=== PATIENT | male | born 1930 | race Hispanic/Latino ===

== ENCOUNTER 2017-09-27 15:05 | Inpatient (IN) | payer MEDICARE, OTHER ==
[2017-09-27 15:39] VITALS: BMI 20.3
[2017-09-27] MEDS ORDERED: Sodium Chloride 0.9% 500 ML IV STA (15:40)
[2017-09-27] MEDS ORDERED: cefTRIAXone 2 GM IN NS 2 GM/100 ML BAG IVPB STA (15:45)
[2017-09-27] MEDS ORDERED: Azithromycin 500MG/NS 250ml 500 MG/250 ML BAG IVPB STA (15:45)
--- NOTE | 2017-09-27 15:51 | ED PDOC ---
Arrival/HPI - General Time Seen by Provider: 09/27/17 15:08 - History of Present Illness Narrative History of Present Illness (Text): 09/27/17 15:48 87 yo male, hx of htn, dementia, baseline awake alert, ambulatory oriented, presents from home with ams. as per family, noted pt to have ams yesterday with cough. pt noted to be febrile in er. pt is baseline ambulatory, verbal. no c/o of pain. no vomiting no diarrhea. Past Medical History - Infectious Disease Hx of Infectious Diseases: None - Tetanus Immunization Tetanus Immunization: Unknown - Cardiac Hx Cardiac Disorders: Yes Hx Congestive Heart Failure: No Hx Hypertension: Yes - Pulmonary Hx Chronic Obstructive Pulmonary Disease (COPD): No Hx Pneumonia: No - Neurological HX Cerebrovascular Accident: Yes - HEENT Hx HEENT Disorder: Yes ([place] DEE-NI') Hx Glaucoma: Yes - Renal Hx Renal Failure: No - Endocrine/Metabolic Hx Diabetes Mellitus Type 1: No Hx Diabetes Mellitus Type 2: No Hx Hypothyroidism: No - Hematological/Oncological Hx Cancer: Yes (squamous cell ca/ scalp) - Integumentary Hx Dermatological Disorder: No - Musculoskeletal/Rheumatological Hx Arthritis: No Hx Rheumatoid Arthritis: No - Gastrointestinal Hx Gastroesophageal Reflux: No - Genitourinary/Gynecological Hx Prostate Problems: Yes (PROSTATE CA) - Psychiatric Hx Emotional Abuse: No Hx Physical Abuse: No Hx Substance Use: No - Surgical History Hx Open Heart Surgery: Yes (bypass x 3) Other/Comment: endarctomy - Anesthesia Hx Anesthesia Reactions: No Hx Malignant Hyperthermia: No - Suicidal Assessment Feels Threatened In Home Enviroment: No Family/Social History - Physician Review Nursing Documentation Reviewed: Yes Family/Social History: Unknown Family HX Smoking Status: Unknown If Ever Smoked Hx Alcohol Use: No Hx Substance Use: No Hx Substance Use Treatment: No Allergies/Home Meds Allergies/Adverse Reactions: Allergies No Known Allergies Allergy (Verified 09/27/17 16:00) Home Medications: Home Meds Medication Instructions Recorded Confirmed Atorvastatin Calcium [Lipitor] 20 mg PO DAILY 06/27/14 09/27/17 Cyanocobalamin/Folic AC/Vit B6 1 tab PO DAILY 06/27/14 09/27/17 [Folbic Tablet] Aspirin [Ecotrin] 325 mg PO DAILY 02/18/16 09/27/17 Clopidogrel [Plavix] 75 mg PO DAILY 02/18/16 09/27/17 Travoprost [Travatan Z] 1 drop OU HS 02/18/16 09/27/17 Hydroxyurea [Hydrea] 500 mg PO BID 08/29/16 09/27/17 Rivastigmine 9.5 mg/24 hr [Exelon 1 patch TD DAILY 08/29/16 09/27/17 9.5 mg/24 hr Patch] Sertraline [Zoloft] 0 mg PO DAILY 09/27/17 09/27/17 Review of Systems - Review of Systems Constitutional: Normal Eyes: Normal ENT: Normal Respiratory: Cough Cardiovascular: Normal Gastrointestinal: Normal Genitourinary Male: Normal Musculoskeletal: Normal Skin: Normal Neurological: Normal Endocrine: Normal Hemo/Lymphatic: Normal Psychiatric: Normal Physical Exam Vital Signs Temp Pulse Resp BP Pulse Ox 09/27/17 21:00 100.1 F H 09/27/17 20:49 100.1 F H 61 18 159/96 H 97 09/27/17 20:26 99.8 F H 62 18 168/96 H 95 09/27/17 18:59 60 18 175/77 H 95 09/27/17 17:26 63 18 191/84 H 97 09/27/17 15:38 100.7 F H 66 18 190/80 H 95 Temperature: Afebrile Blood Pressure: Normal Pulse: Regular Respiratory Rate: Normal Appearance: Positive for: Non-Toxic, Comfortable Pain Distress: None Mental Status: Positive for: Alert and Oriented X 3 Finger Stick Blood Glucose: 108 - Systems Exam Head: Present: Atraumatic, Normocephalic Pupils: Present: PERRL Extroacular Muscles: Present: EOMI Conjunctiva: Present: Normal Mouth: Present: Moist Mucous Membranes Neck: Present: Normal Range of Motion Respiratory/Chest: Present: Good Air Exchange, Other (coarse bs bl). No: Respiratory Distress, Accessory Muscle Use Cardiovascular: Present: Regular Rate and Rhythm, Normal S1, S2. No: Murmurs Abdomen: Present: Normal Bowel Sounds. No: Tenderness, Distention, Peritoneal Signs, Rebound, Guarding Back: Present: Normal Inspection Upper Extremity: Present: Normal Inspection. No: Cyanosis, Edema Lower Extremity: Present: Normal Inspection. No: Edema Neurological: Present: GCS=15, CN II-XII Intact, Speech Normal, Motor Func Grossly Intact, Normal Sensory Function, Other (no focal deficit) Skin: Present: Warm, Dry, Normal Color. No: Rashes Psychiatric: Present: Alert, Oriented x 3, Normal Insight, Normal Concentration Medical Decision Making ED Course and Treatment: 09/27/17 19:13 suspect sepsis- labs imaging pendign head ct neg, pneumonia treated, also covered for possible aspiration. urine treated. accepted by dr adamson. pt also need ativan for sedation in head ct. ativan dosed. - Lab Interpretations Microbiology Results: Microbiology Results 09/27/17 14:05 Blood Blood Culture - Preliminary NO GROWTH AFTER 3 DAYS 09/27/17 15:35 Blood Blood Culture - Preliminary NO GROWTH AFTER 3 DAYS 09/27/17 16:10 Urine Urine Culture - Final Enterococcus Faecalis Lab Results: 09/27/17 15:35 09/27/17 15:35 Lab Results 09/27/17 16:25: Influenza Typ A,B (EIA) Negative for flu a/b 09/27/17 16:10: Urine Color Yellow, Urine Appearance Turbid, Urine pH 6.5, Ur Specific [place] 1.015, Urine Protein 30 H, Urine Glucose (UA) Negative, Urine Ketones Negative, Urine Blood Large H, Urine Nitrate Negative, Urine Bilirubin Negative, Urine Urobilinogen 1.0 H, Ur Leukocyte Esterase Moderate H, Urine RBC 5 - 10, Urine WBC Tntc, Urine Bacteria Trace 09/27/17 15:35: Phosphorus 3.5, Magnesium 2.0 09/27/17 15:35: Procalcitonin 0.06 L 09/27/17 15:35: Sodium 141, Chloride 100, Potassium 4.2, Carbon Dioxide 28, Anion Gap 17, BUN 19, Creatinine 1.0, Est GFR ( Amer) > 60, Est GFR (Non- Af Amer) > 60, Random Glucose 115 H, Calcium 10.7 H, Magnesium 2.0, Total Bilirubin 1.4 H, AST 46, ALT 35, Alkaline Phosphatase 150 H, Lactate Dehydrogenase 703 H, Total Creatine Kinase 453 H, CK-MB (CK-2) 1.6, CK-MB (CK-2 ) % Cancelled, Troponin I 0.06 D, Total Protein 8.0, Albumin 4.2, Globulin 3.8 , Albumin/Globulin Ratio 1.1 09/27/17 15:35: PT 13.9 H, INR 1.21 H, APTT 30.1 02/20/18 15:35: WBC 9.5, RBC 4.27, Hgb 13.9 L, Hct 41.6 L, MCV 97.4, MCH 32.6, MCHC 33.4, RDW 14.2, Plt Count 289, MPV 10.6, Gran % 67.8, Lymph % (Auto) 13.4 L , Jenkins % (Auto) 18.5 H, Eos % (Auto) 0.1 L, Baso % (Auto) 0.2, Gran # 6.43, Lymph # (Auto) 1.3, Jenkins # (Auto) 1.8 H, Eos # (Auto) 0.0, Baso # (Auto) 0.02 09/27/17 15:35: pO2 53, VBG pH 7.40, VBG pCO2 48.0, VBG HCO3 29.7 H, VBG Total CO2 31.2 H, VBG O2 Sat (Calc) 92.2 H, VBG Base Excess 4.0 H, VBG Potassium 4.4, Sodium 137.0, Chloride 101.0, Glucose 134 H, Lactate 1.9, FiO2 21.0, Venous Blood Potassium 4.4 09/27/17 15:33: POC Glucose (mg/dL) 108 - RAD Interpretation Radiology Orders: 09/27/17 15:40 CHEST PORTABLE [RAD] Stat 09/27/17 15:44 HEAD W/O CONTRAST [CT] Stat - Medication Orders Current Medication Orders: Acetaminophen (Tylenol 650 Mg Supp) 650 mg RC Q4H PRN PRN Reason: Fever >100.4 F Last Admin: 09/28/17 23:04 Dose: 650 mg LAURO Pain/Vitals Document 09/28/17 23:04 CDE (Rec: 09/28/17 23:04 CDE [id number]) Pain Reassessment Is This A Pain ReAssessment? No Presence of Pain Presence of Pain No Vitals Temperature (97.6 F-99.6 F) 101.4 F Temperature Source Rectal Re-Assess: LAURO Pain/Vitals Document 09/29/17 00:04 CDE (Rec: 09/29/17 05:14 CDE [id number]) Vitals Temperature (97.6 F-99.6 F) 99.2 F Temperature Source Rectal Acetylcysteine (Acetylcysteine 20%) 4 ml IH [id number] [facility] Last Admin: 10/01/17 05:01 Dose: Albuterol/Ipratropium (Duoneb 3 Mg/0.5 Mg (3 Ml) Ud) 3 ml IH [id number] [facility] Last Admin: 10/01/17 05:04 Dose: Amlodipine Besylate (Norvasc) 5 mg PO DAILY [facility] Last Admin: 09/30/17 16:47 Dose: 5 mg MAR Pulse and Blood Pressure Document 09/30/17 16:47 [facility] (Rec: 09/30/17 16:49 [facility] [id number]) Pulse Pulse Rate (60-90) 73 Blood Pressure Blood Pressure (100/60-150/90) 182/63 Aspirin (Ecotrin) 325 mg PO DAILY [facility] Last Admin: 09/30/17 11:07 Dose: 325 mg Atorvastatin Calcium (Lipitor) 20 mg PO DAILY [facility] Last Admin: 09/30/17 11:07 Dose: 20 mg Clopidogrel Bisulfate (Plavix) 75 mg PO DAILY [facility] Last Admin: 09/30/17 11:07 Dose: 75 mg Heparin Sodium (Porcine) (Heparin) 5,000 units SC Q8 [facility] PRN Reason: Protocol Last Admin: 10/01/17 05:25 Dose: 5,000 units Subcutaneous Administrations Document 10/01/17 05:25 [facility] (Rec: 10/01/17 05:25 [id number]) Charges for Administration # of Subcutaneous Administrations 1 Hydroxyurea (Hydrea) 500 mg PO BID [facility] Last Admin: 09/30/17 19:20 Dose: 500 mg Azithromycin (Zithromax 500mg In Ns) 500 mg in 250 mls @ 167 mls/hr IVPB DAILY [facility] PRN Reason: Protocol Last Admin: 09/30/17 11:27 Dose: 167 mls/hr eMAR Start Stop Document 09/30/17 11:27 [facility] (Rec: 09/30/17 11:27 [facility] [id number]) Intravenous Solution Start Date 09/30/17 Start Time 10:00 End Date 09/30/17 End time 11:00 Total Infusion Time 60 Meropenem/Sodium Chloride (Meropenem 1g/Ns 100ml Ivpb) 1 gm in 100 mls @ 100 mls/hr IVPB Q8 [facility] PRN Reason: Protocol Stop: 10/05/17 06:31 Last Admin: 10/01/17 05:25 Dose: 100 mls/hr eMAR Start Stop Document 10/01/17 05:25 [facility] (Rec: 10/01/17 05:25 [id number]) Intravenous Solution Start Date 10/01/17 Start Time 05:25 End Date 10/01/17 End time 06:25 Total Infusion Time 60 Vancomycin HCl (Vancomycin 1gm) 1 gm in 250 mls @ 167 mls/hr IVPB Q12H LEONARD PRN Reason: Protocol Last Admin: 10/01/17 06:41 Dose: 167 mls/hr eMAR Start Stop Document 10/01/17 06:41 [facility] (Rec: 10/01/17 06:42 [id number]) Intravenous Solution Start Date 10/01/17 Start Time 06:41 End Date 10/01/17 End time 08:11 Total Infusion Time 90 Potassium Chloride 10 meq/ (Dextrose/Sodium Chloride) 1,005 mls @ 100 mls/hr IV .Q10H3M LEONARD Last Admin: 09/30/17 21:39 Dose: 100 mls/hr eMAR Start Stop Document 09/30/17 21:39 [facility] (Rec: 09/30/17 21:39 [id number]) Intravenous Solution Start Date 09/30/17 Start Time 21:39 Latanoprost (Xalatan Opht) 0 ml OU HS LEONARD Last Admin: 09/30/17 21:37 Dose: 2.5 ml Lorazepam (Ativan) 0.5 mg IVP Q8H PRN; Protocol PRN Reason: Anxiety Last Admin: 09/29/17 21:46 Dose: 0.5 mg IVP Administration Document 09/29/17 21:46 [facility] (Rec: 09/29/17 21:46 [id number]) Charges for Administration # of IVP Administrations 1 Re-Assess: Reassess Psych Meds Document 09/29/17 22:16 [facility] (Rec: 09/29/17 23:45 [facility] [id number]) Reassess Psych Med Effective Metoprolol Succinate (Toprol Xl) 50 mg PO DAILY LEONARD Last Admin: 09/30/17 11:03 Dose: 50 mg MAR Pulse and Blood Pressure Document 09/30/17 11:03 JOYCELYN (Rec: 09/30/17 11:06 [facility] [id number]) Pulse Pulse Rate (60-90) 82 Blood Pressure Blood Pressure (100/60-150/90) 192/89 Oseltamivir Phosphate (Tamiflu Cap) 75 mg PO BID LEONARD PRN Reason: Protocol Stop: 10/03/17 06:22 Last Admin: 09/30/17 18:35 Dose: 75 mg Pantoprazole Sodium (Protonix Ec Tab) 40 mg PO ACB LEONARD Last Admin: 09/30/17 08:41 Dose: 40 mg Quetiapine Fumarate (Seroquel) 12.5 mg PO HS LEONARD PRN Reason: Protocol Last Admin: 09/30/17 21:36 Dose: 12.5 mg Behavioural Document 09/30/17 21:36 [facility] (Rec: 09/30/17 21:37 [id number]) Maintenance Maintenance Dose Yes Re-Assess: Reassess Psych Meds Document 09/30/17 22:36 [facility] (Rec: 09/30/17 22:40 [id number]) Reassess Psych Med Effective Rivastigmine (Exelon 9.5 Mg/24 Hr Patch) 1 patch TD DAILY [facility] Last Admin: 09/30/17 11:07 Dose: 1 patch MAR Transdermal Patch Site Document 09/30/17 11:07 [facility] (Rec: 09/30/17 11:07 [facility] [id number]) Transdermal Patch Site Transdermal Patch Site Right Shoulder Discontinued Medications Acetaminophen (Tylenol 325mg Tab) 975 mg PO STAT STA Stop: 09/27/17 15:42 Last Admin: 09/27/17 16:19 Dose: Acetaminophen (Tylenol 650 Mg Supp) 650 mg RC STAT STA Stop: 09/27/17 17:17 Last Admin: 09/27/17 17:26 Dose: 650 mg MAR Pain/Vitals Document 09/27/17 17:26 SF (Rec: 09/27/17 17:26 SF [id number]) Pain Reassessment Is This A Pain ReAssessment? Yes Sleep Is patient sleeping during reassessment? No Acetylcysteine (Acetylcysteine 20%) 4 ml IH ONCE ONE Stop: 09/28/17 22:05 Acetylcysteine (Acetylcysteine 20%) 4 ml IH ONCE ONE Stop: 09/27/17 22:05 Last Admin: 09/27/17 22:46 Dose: 4 ml Albuterol/Ipratropium (Duoneb 3 Mg/0.5 Mg (3 Ml) Ud) 3 ml IH STAT STA Stop: 09/27/17 22:27 Last Admin: 09/27/17 22:46 Dose: 3 ml Hydralazine HCl (Apresoline) 10 mg IVP ONCE ONE Stop: 09/28/17 11:40 Last Admin: 09/28/17 11:43 Dose: 10 mg IVP Administration Document 09/28/17 11:43 CD (Rec: 09/28/17 11:44 [id number] Charges for Administration # of IVP Administrations 1 MAR Pulse and Blood Pressure Document 09/28/17 11:43 CD (Rec: 09/28/17 11:44 CD [place] [id number]) Pulse Pulse Rate (60-90) 75 Blood Pressure Blood Pressure (100/60-150/90) 207/82 Hydralazine HCl (Apresoline) 10 mg IVP STAT STA Stop: 09/30/17 23:26 Last Admin: 09/30/17 23:38 Dose: 10 mg IVP Administration Document 09/30/17 23:38 [facility] (Rec: 09/30/17 23:38 [id number]) Charges for Administration # of IVP Administrations 1 MAR Pulse and Blood Pressure Document 09/30/17 23:38 [facility] (Rec: 09/30/17 23:38 [id number]) Pulse Pulse Rate (60-90) 68 Blood Pressure Blood Pressure (100/60-150/90) 188/89 Sodium Chloride (Sodium Chloride 0.9%) 500 mls @ 999 mls/hr IV .Q31M STA Stop: 09/27/17 16:10 Last Admin: 09/27/17 16:16 Dose: 999 mls/hr eMAR Start Stop Document 09/27/17 16:16 SF (Rec: 09/27/17 16:17 SF [id number]) Intravenous Solution Start Date 09/27/17 Start Time 16:16 End Date 09/27/17 End time 16:46 Total Infusion Time 30 Ceftriaxone Sodium (Rocephin 2 Gm Ivpb) 2 gm in 100 mls @ 100 mls/hr IVPB STAT STA PRN Reason: Protocol Stop: 09/27/17 16:44 Last Admin: 09/27/17 16:16 Dose: 100 mls/hr eMAR Start Stop Document 09/27/17 16:16 SF (Rec: 09/27/17 16:16 SF [id number]) Intravenous Solution Start Date 09/27/17 Start Time 16:16 End Date 09/27/17 End time 17:16 Total Infusion Time 60 Azithromycin (Zithromax 500mg In Ns) 500 mg in 250 mls @ 167 mls/hr IVPB STAT STA PRN Reason: Protocol Stop: 09/27/17 17:14 Last Admin: 09/27/17 18:59 Dose: 167 mls/hr eMAR Start Stop Document 09/27/17 18:59 SF (Rec: 09/27/17 18:59 SF [id number]) Intravenous Solution Start Date 09/27/17 Start Time 18:59 End Date 09/27/17 End time 20:30 Total Infusion Time 91 Metronidazole (Flagyl) 500 mg in 100 mls @ 100 mls/hr IVPB STAT STA PRN Reason: Protocol Stop: 09/27/17 17:17 Last Admin: 09/27/17 17:27 Dose: 100 mls/hr eMAR Start Stop Document 09/27/17 17:27 SF (Rec: 09/27/17 17:27 SF [id number]) Intravenous Solution Start Date 09/27/17 Start Time 17:27 End Date 09/27/17 End time 18:27 Total Infusion Time 60 Dextrose/Sodium Chloride (Dextrose 5%/0.45% Ns 1000 Ml) 1,000 mls @ 100 mls/hr IV .Q10H [facility] Last Admin: 09/28/17 23:19 Dose: 100 mls/hr eMAR Start Stop Document 09/28/17 23:19 CDE (Rec: 09/28/17 23:20 CDE [id number]) Intravenous Solution Start Date 09/28/17 Start Time 23:20 Daptomycin 420 mg/ Sodium (Chloride) 100 mls @ 200 mls/hr IV ONCE ONE Stop: 09/29/17 09:14 Last Admin: 09/29/17 10:04 Dose: 200 mls/hr eMAR Start Stop Document 09/29/17 10:04 STACY (Rec: 09/29/17 10:04 [id number]) Intravenous Solution Start Date 09/29/17 Start Time 10:04 End Date 09/29/17 End time 11:04 Total Infusion Time 60 Lorazepam (Ativan) 1 mg IVP ONCE ONE PRN Reason: Protocol Stop: 09/27/17 18:30 Last Admin: 09/27/17 18:59 Dose: 1 mg IVP Administration Document 09/27/17 18:59 SF (Rec: 09/27/17 18:59 SF [id number]) Charges for Administration # of IVP Administrations 1 Oseltamivir Phosphate (Tamiflu Cap) 75 mg PO STAT STA PRN Reason: Protocol Stop: 09/27/17 17:39 Last Admin: 09/27/17 18:58 Dose: Pantoprazole Sodium (Protonix Inj) 40 mg IVP DAILY LEONARD Last Admin: 09/29/17 10:01 Dose: 40 mg IVP Administration Document 09/29/17 10:01 STACY (Rec: 09/29/17 10:01 [id number]) Charges for Administration # of IVP Administrations 1 Potassium Chloride (Klor-Con 10) 10 meq PO ONCE ONE Stop: 09/29/17 09:01 Last Admin: 09/29/17 10:03 Dose: 10 meq Disposition/Present on Arrival - Present on Arrival Any Indicators Present on Arrival: No History of DVT/PE: No History of Uncontrolled Diabetes: No Urinary Catheter: No History Surgical Site Infection Following: None - Disposition Have Diagnosis and Disposition been Completed?: Yes Diagnosis: Pneumonia, Altered mental status, Urinary tract infection Disposition: HOSPITALIZED Disposition Time: 19:16 Patient Problems: Current Active Problems Problem Status Onset Altered mental status Acute Pneumonia Acute Urinary tract infection Acute Condition: GUARDED
[2017-09-27 15:57] LABS: BASO # 0.02 K/mm3 (0.0-2.0); BASO % 0.2 % (0.0-3.0); EOS % 0.1 % (1.5-5.0); GRAN # 6.43 (1.4-6.5); GRAN % 67.8 % (50.0-68.0); HEMOGLOBIN 13.9 g/dL (14.0-18.0); LYMPH # 1.3 (1.2-3.4); LYMPH % 13.4 % (22.0-35.0); MEAN CELL VOLUME 97.4 fl (80.0-105.0); MEAN CORPUSCULAR HEMOGLOBIN 32.6 pg (25.0-35.0); MEAN CORPUSCULAR HGB CONC 33.4 g/dl (31.0-37.0); MEAN PLATELET VOLUME 10.6 fl (7.0-11.0); MONO # 1.8 (0.1-0.6); MONO % 18.5 % (1.0-6.0); RBC 4.27 10^6/uL (3.5-6.1); RED CELL DISTRIBUTION WIDTH 14.2 % (11.5-14.5); WHITE BLOOD COUNT 9.5 10^3/ul (4.5-11.0)
[2017-09-27 16:00] LABS: VENOUS BLOOD GAS PO2 53 mm/Hg (30-55)
[2017-09-27 16:16] LABS: ALB/GLOB RATIO 1.1 (1.1-1.8); ALBUMIN 4.2 g/dL (3.0-4.8); ALT/SGPT 35 U/L (7-56); AST/SGOT 46 U/L (17-59); BLOOD UREA NITROGEN 19 mg/dL (7-21); CALCIUM 10.7 mg/dL (8.4-10.5); GFR AFRICAN-AMERICAN > 60; GFR NON-AFRICAN AMERICAN > 60
[2017-09-27 16:17] LABS: INR 1.21 (0.93-1.08); PARTIAL THROMBOPLASTIN TIME 30.1 Seconds (25.1-36.5); PROTHROMBIN TIME 13.9 SECONDS (9.4-12.5)
[2017-09-27] MEDS ORDERED: metroNIDAZOLE IV 500 mg/100 ml 500 MG/100 ML BAG IVPB STA (16:18)
[2017-09-27 16:28] LABS: TROPONIN I 0.06 ng/mL
[2017-09-27 16:31] LABS: PH,URINE 6.5 (4.7-8.0); URINE BILIRUBIN NEGATIVE (NEGATIVE); URINE BLOOD LARGE (NEGATIVE); URINE GLUCOSE (UA) NEGATIVE (NEGATIVE); URINE LEUKOCYTE ESTERASE MODERATE Leu/uL (NEGATIVE); URINE NITRATE NEGATIVE (NEGATIVE); URINE PROTEIN 30 mg/dL (<30 mg/dL)
[2017-09-27 16:32] LABS: URINE APPEARANCE TURBID (CLEAR); URINE COLOR YELLOW (YELLOW)
[2017-09-27 16:46] LABS: URINE BACTERIA TRACE (NEG); URINE WBC TNTC /hpf (0-6)
--- NOTE | 2017-09-27 16:46 | RAD ---
HISTORY: fever COMPARISON: 08/29/2016 FINDINGS: LUNGS: There is a patchy infiltrate in the right upper lobe consistent with pneumonia PLEURA: No significant pleural effusion identified, no pneumothorax apparent. CARDIOVASCULAR: Normal. OSSEOUS STRUCTURES: No significant abnormalities. VISUALIZED UPPER ABDOMEN: Normal. OTHER FINDINGS: None. IMPRESSION: There is a patchy infiltrate in the right upper lobe consistent with pneumonia
[2017-09-27 16:59] LABS: CK-MB 1.6 ng/mL (0.0-3.6)
--- NOTE | 2017-09-27 19:06 | CT ---
[place] PROCEDURE: CT HEAD WITHOUT CONTRAST. HISTORY: ams COMPARISON: Noncontrast head CT performed 08/29/16 TECHNIQUE: Axial computed tomography images were obtained through the head/brain without intravenous contrast. Radiation dose: Total exam DLP = 1068.12 mGy-cm. This CT exam was performed using one or more of the following dose reduction techniques: Automated exposure control, adjustment of the mA and/or kV according to patient size, and/or use of iterative reconstruction technique. FINDINGS: HEMORRHAGE: No intracranial hemorrhage. BRAIN: Diffuse atrophy with prominence of the ventricles and sulci noted. No mass effect or edema. Scattered periventricular and subcortical white matter hypodensities, which are nonspecific, but often seen with chronic microvascular ischemic disease. Chronic left parietal lobe encephalomalacia. Scattered tiny probable bilateral lacunar infarcts. Please note that MRI with diffusion imaging is more sensitive in the detection of acute ischemic event. VENTRICLES: No hydrocephalus. CALVARIUM: Unremarkable. PARANASAL SINUSES: Marked mucosal thickening involving bilateral maxillary sinuses, mucosal thickening of the bilateral sphenoid sinuses, and opacification of the ethmoid air cells and left frontal sinus. MASTOID AIR CELLS: Unremarkable as visualized. No inflammatory changes. OTHER FINDINGS: Evaluation limited by patient motion. Extensive osseous demineralization. IMPRESSION: Evaluation limited by patient motion. Generalized atrophy. Moderate nonspecific white matter changes. Chronic left parietal lobe encephalomalacia. Scattered tiny probable bilateral lacunar infarcts. Marked mucosal thickening involving bilateral maxillary sinuses, mucosal thickening of the bilateral sphenoid sinuses, and opacification of the ethmoid air cells and left frontal sinus. Correlate clinically for sinusitis. Extensive osseous demineralization. Inadequate evaluation for fractures due to motion osseous demineralization.
--- NOTE | 2017-09-27 21:06 | CP.PCM.PN ---
<Jamey Amor - Last Filed: 09/29/17 15:44> Subjective - Date & Time of Evaluation Date of Evaluation: 09/29/17 Time of Evaluation: 06:15 - Subjective Subjective: Patient seen and examined at bedside. Patient has been afebrile since his last rectal temp the previous night. Patient is more responsive since being admitted. Is aware of his name, aware of the city he's from and month. Patient denies pain. Review of systems limited as patient is altered. Objective - Vital Signs/Intake and Output Vital Signs (last 24 hours): Temp Pulse Resp BP Pulse Ox 100.1 F H 61 18 159/96 H 97 09/27/17 20:49 09/27/17 20:49 09/27/17 20:49 09/27/17 20:49 09/27/17 20:49 - Medications Medications: Current Medications Acetaminophen (Tylenol 650 Mg Supp) 650 mg RC Q4H PRN PRN Reason: Fever >100.4 F Aspirin (Ecotrin) 325 mg PO DAILY [facility] Atorvastatin Calcium (Lipitor) 20 mg PO DAILY [facility] Clopidogrel Bisulfate (Plavix) 75 mg PO DAILY [facility] Heparin Sodium (Porcine) (Heparin) 5,000 units SC Q8 [facility] PRN Reason: Protocol Hydroxyurea (Hydrea) 500 mg PO BID [facility] Metoprolol Succinate (Toprol Xl) 50 mg PO DAILY [facility] Non-Formulary Medication (Travoprost [Travatan Z]) 1 drop OU HS [facility] Pantoprazole Sodium (Protonix Inj) 40 mg IVP DAILY [facility] Quetiapine Fumarate (Seroquel) 12.5 mg PO HS [facility] PRN Reason: Protocol Rivastigmine (Exelon 9.5 Mg/24 Hr Patch) 1 patch TD DAILY [facility] - Labs Labs: PT 13.9 SECONDS (9.4-12.5) H 09/27/17 15:35 INR 1.21 (0.93-1.08) H 09/27/17 15:35 APTT 30.1 Seconds (25.1-36.5) 09/27/17 15:35 - Constitutional Appears: Non-toxic, No Acute Distress - Head Exam Head Exam: ATRAUMATIC, NORMOCEPHALIC Additional comments: scars from previous skin cancer removals - Eye Exam Eye Exam: Normal appearance - ENT Exam ENT Exam: Mucous Membranes Moist, Normal Exam - Neck Exam Neck Exam: Full ROM, Normal Inspection - Respiratory Exam Respiratory Exam: Clear to Ausculation Bilateral, NORMAL BREATHING PATTERN. absent: Rhonchi, Wheezes - Cardiovascular Exam Cardiovascular Exam: REGULAR RHYTHM, +S1, +S2 - GI/Abdominal Exam GI & Abdominal Exam: Soft, Normal Bowel Sounds - Neurological Exam Neurological Exam: Alert, Awake, Oriented x3 - Psychiatric Exam Psychiatric exam: Normal Affect, Normal Mood - Skin Skin Exam: Intact, Normal Color, Warm Assessment and Plan - Assessment and Plan (Free Text) Assessment: 80 year old male with significant history of alzheimer's dementia presenting with altered mental status found to be septic with urinary tract infection, pneumonia, and sinusitis being sources of infection. Plan: Altered mental status secondary to sepsis due to urinary tract infection, Right upper lobe pneumonia, and sinusitis -Procal negative, CRP elevated >15 -IVF -Merrem, Azithromycin, Vancomycin, Daptomycin -Troponin series negative -Sputum cultures grew normal bulmaro -Blood cultures pending -Urine cultures grew eterococcus faecalis -Legionella, S. pneumoniae, Mycoplasma studies ordered -Infectious disease on board, started daptoymcin considering urine culture -Continue with seizure, aspiration, fall precautions History of CAD - continue ASA, Plavix, Lipitor, and Metoprolol Alzheimer's Dementia - Continue Exelon patch - Seroquel DVT prophylaxis: SCDs, Plavix GI prophylaxis: Protonix Dispo: physical therapy recommends subacute rehab. <Dot Bernstein - Last Filed: 09/29/17 16:06> Objective - Vital Signs/Intake and Output Vital Signs (last 24 hours): Temp Pulse Resp BP Pulse Ox 98.9 F 68 16 176/72 H 95 09/29/17 12:00 09/29/17 14:00 09/29/17 12:00 09/29/17 12:00 09/29/17 12:00 Intake and Output: 09/29/17 09/29/17 06:59 18:59 Intake Total 1200 240 Output Total 300 Balance 900 240 - Medications Medications: Current Medications Acetaminophen (Tylenol 650 Mg Supp) 650 mg RC Q4H PRN PRN Reason: Fever >100.4 F Last Admin: 09/28/17 23:04 Dose: 650 mg Acetylcysteine (Acetylcysteine 20%) 4 ml IH [id number] [facility] Last Admin: 09/29/17 11:21 Dose: 4 ml Albuterol/Ipratropium (Duoneb 3 Mg/0.5 Mg (3 Ml) Ud) 3 ml IH [id number] [facility] Last Admin: 09/29/17 11:22 Dose: 3 ml Aspirin (Ecotrin) 325 mg PO DAILY [facility] Last Admin: 09/29/17 10:04 Dose: 325 mg Atorvastatin Calcium (Lipitor) 20 mg PO DAILY [facility] Last Admin: 09/29/17 10:04 Dose: 20 mg Clopidogrel Bisulfate (Plavix) 75 mg PO DAILY [facility] Last Admin: 09/29/17 10:01 Dose: 75 mg Heparin Sodium (Porcine) (Heparin) 5,000 units SC Q8 [facility] PRN Reason: Protocol Last Admin: 09/29/17 14:04 Dose: 5,000 units Hydroxyurea (Hydrea) 500 mg PO BID [facility] Last Admin: 09/29/17 12:14 Dose: 500 mg Azithromycin (Zithromax 500mg In Ns) 500 mg in 250 mls @ 167 mls/hr IVPB DAILY [facility] PRN Reason: Protocol Last Admin: 09/29/17 10:04 Dose: 167 mls/hr Meropenem/Sodium Chloride (Meropenem 1g/Ns 100ml Ivpb) 1 gm in 100 mls @ 100 mls/hr IVPB Q8 [facility] PRN Reason: Protocol Stop: 10/05/17 06:31 Last Admin: 09/29/17 14:04 Dose: 100 mls/hr Vancomycin HCl (Vancomycin 1gm) 1 gm in 250 mls @ 167 mls/hr IVPB Q12H [facility] PRN Reason: Protocol Last Admin: 09/29/17 05:59 Dose: 167 mls/hr Potassium Chloride 10 meq/ (Dextrose/Sodium Chloride) 1,005 mls @ 100 mls/hr IV .Q10H3M [facility] Last Admin: 09/29/17 10:01 Dose: 100 mls/hr Latanoprost (Xalatan Opht) 0 ml OU HS [facility] Last Admin: 09/28/17 23:13 Dose: 2.5 ml Lorazepam (Ativan) 0.5 mg IVP Q8H PRN; Protocol PRN Reason: Anxiety Metoprolol Succinate (Toprol Xl) 50 mg PO DAILY [facility] Last Admin: 09/29/17 10:19 Dose: 50 mg Oseltamivir Phosphate (Tamiflu Cap) 75 mg PO BID [facility] PRN Reason: Protocol Stop: 10/03/17 06:22 Last Admin: 09/29/17 10:02 Dose: 75 mg Pantoprazole Sodium (Protonix Ec Tab) 40 mg PO ACB [facility] Quetiapine Fumarate (Seroquel) 12.5 mg PO HS [facility] PRN Reason: Protocol Last Admin: 09/28/17 23:03 Dose: 12.5 mg Rivastigmine (Exelon 9.5 Mg/24 Hr Patch) 1 patch TD DAILY [facility] Last Admin: 09/29/17 10:03 Dose: 1 patch - Labs Labs: 09/29/17 06:30 09/29/17 06:30 PT 13.9 SECONDS (9.4-12.5) H 09/27/17 15:35 INR 1.21 (0.93-1.08) H 09/27/17 15:35 APTT 30.6 Seconds (25.1-36.5) 09/28/17 03:15 Attending/Attestation - Attestation I have personally seen and examined this patient.: Yes I have fully participated in the care of the patient.: Yes I have reviewed all pertinent clinical information, including history, physical exam and plan: Yes Notes (Text): 09/29/17 16:05 attending note; Patient seen and examined with resident. Patient is a 80 year old male with significant history of alzheimer's dementia presenting with altered mental status found to be septic with urinary tract infection, pneumonia, and sinusitis being sources of infection. MAXIMUM TEMPERATURE of 102. Started on IV meropenem and Zithromax. ID evaluation requested. Rapid flu was negative. Patient is started on Tamiflu. Monitor fever trend. Fall/aspiration/seizure precautions. Upon discharge the patient will follow up with PMD Dr. Lorenzo.
[2017-09-27] MEDS: Latanoprost 2.5 ml Opht Soln OU SCH (21:48)
[2017-09-27] MEDS ORDERED: Non Formulary Medication (Travoprost [Travatan Z] 1 DROP) OU SCH (22:00)
[2017-09-27] MEDS ORDERED: Acetylcysteine 20% Inhal Soln (4ml) IH ONE (22:04)
[2017-09-27] MEDS ORDERED: Albuterol-Ipratrop 3 mg / 0.5 (3 ml) UD IH STA (22:26)
--- NOTE | 2017-09-28 02:29 | CARD ---
APPROVED REPORT EKG Measurement Heart [id number] <Conclusion> Normal sinus rhythm Nonspecific T wave abnormality Abnormal ECG
--- NOTE | 2017-09-28 03:16 | CP.PCM.HP ---
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 As per daughter's patient was completely fine yesterday aside from having a runny nose. Next morning when bringing him breakfast, patient was noted to be very confused, and not oriented to self, time or place. To note, patient presented similarly in the past due to urinary tract infection. Review of systems unobtainable as patient is mentally altered. PMD: Dr. 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 Patient is retired. Lives in furnished basement of daughter's house. Needs assistance for ADL's and IADL's. Uses cane for walking. Present on Admission - Present on Admission Any Indicators Present on Admission: No Review of Systems - Review of Systems Systems not reviewed;Unavailable: Altered Mental Status Past Patient History - Infectious Disease Hx of Infectious Diseases: None - Tetanus Immunizations Tetanus Immunization: Unknown - Past Medical History & Family History Past Medical History?: Yes - Past Social History Smoking Status: Unknown If Ever Smoked - CARDIAC Hx Cardiac Disorders: Yes (CABG, carotid endarectomy) Hx Hypercholesterolemia: Yes Hx Hypertension: Yes - PULMONARY Hx Chronic Obstructive Pulmonary Disease (COPD): No Hx Pneumonia: No - NEUROLOGICAL HX Cerebrovascular Accident: Yes Hx Dementia: Yes - HEENT Hx HEENT Problems: Yes Hx Glaucoma: Yes - RENAL Hx Chronic Kidney Disease: No - ENDOCRINE/METABOLIC Hx Endocrine Disorders: No - HEMATOLOGICAL/ONCOLOGICAL Hx Cancer: Yes (squamous cell ca/ scalp) - INTEGUMENTARY Hx Dermatological Problems: Yes Hx Squamous Cell: Yes (scalp) - MUSCULOSKELETAL/RHEUMATOLOGICAL Hx Musculoskeletal Disorders: Yes Hx Falls: Yes Hx Osteoporosis: Yes - GASTROINTESTINAL Hx Gastrointestinal Disorders: No - GENITOURINARY/GYNECOLOGICAL Hx Genitourinary Disorders: Yes Hx Prostate Problems: Yes (PROSTATE CA) Hx Urinary Tract Infection: Yes - PSYCHIATRIC Hx Psychophysiologic Disorder: Yes Hx Depression: Yes Hx Substance Use: No - SURGICAL HISTORY Hx Surgeries: Yes Hx Cardiac Catheterization: Yes Hx Coronary Stent: Yes Hx Open Heart Surgery: Yes Other/Comment: carotid endarctomy - ANESTHESIA Hx Anesthesia Reactions: No Hx Malignant Hyperthermia: No Meds Allergies/Adverse Reactions: Allergies Allergy/AdvReac Type Severity Reaction Status Date / Time No Known Allergies Allergy Verified 09/27/17 16:00 Physical Exam - Constitutional Appears: In Acute Distress - Head Exam Head Exam: ATRAUMATIC, NORMAL INSPECTION, NORMOCEPHALIC - Eye Exam Eye Exam: Normal appearance, PERRL - ENT Exam ENT Exam: Mucous Membranes Dry - Neck Exam Neck exam: Positive for: Normal Inspection - Respiratory Exam Respiratory Exam: Clear to Auscultation Bilateral, NORMAL BREATHING PATTERN. absent: Wheezes - Cardiovascular Exam Cardiovascular Exam: REGULAR RHYTHM, +S1, +S2 - GI/Abdominal Exam GI & Abdominal Exam: Normal Bowel Sounds, Soft - Extremities Exam Extremities exam: Positive for: normal inspection, pedal pulses present. Negative for: pedal edema, tenderness - Back Exam Back exam: NORMAL INSPECTION - Neurological Exam Neurological exam: Altered - Skin Skin Exam: Intact, Normal Color, Warm Additional comments: scar on chest wall from CABG Results - Vital Signs Recent Vital Signs: Last Vital Signs Temp 99.9 F H 09/28/17 00:01 Pulse 60 09/28/17 02:00 Resp 19 09/28/17 00:01 BP 170/69 H 09/28/17 00:01 Pulse Ox 95 09/28/17 00:01 - Labs Result Diagrams: 09/28/17 03:15 09/28/17 03:15 Labs: Laboratory Results - last 24 hr 09/27/17 22:31 Troponin I 0.07 Assessment & Plan - Assessment and Plan (Free Text) Assessment: 80 year old male with significant history of alzheimer's dementia presenting with altered mental status found to be septic with urinary tract infection, pneumonia, and sinusitis being sources of infection. Plan: Altered mental status secondary to sepsis due to urinary tract infection, Right upper lobe pneumonia, and sinusitis -Procal -IVF -Rocephin and Azithromycin -Troponin series ordered -Sputum, blood, and urine cultures -Legionella, S. pneumoniae, Mycoplasma studies ordered -Infectious disease consulted -Seizure, aspiration, fall precautions History of CAD - continue ASA, Plavix, Lipitor, and Metoprolol Alzheimer's Dementia - Continue Exelon patch - Seroquel DVT prophylaxis: SCDs, Plavix GI prophylaxis: Protonix
[2017-09-28 03:39] LABS: ALB/GLOB RATIO 1.1 (1.1-1.8); ALT/SGPT 32 U/L (7-56); AST/SGOT 54 U/L (17-59); BLOOD UREA NITROGEN 18 mg/dL (7-21); CALCIUM 10.2 mg/dL (8.4-10.5); GFR AFRICAN-AMERICAN > 60; GFR NON-AFRICAN AMERICAN > 60
[2017-09-28 03:43] LABS: BASO # 0.02 K/mm3 (0.0-2.0); BASO % 0.2 % (0.0-3.0); EOS % 0.3 % (1.5-5.0); GRAN # 5.76 (1.4-6.5); HEMOGLOBIN 13.3 g/dL (14.0-18.0); LYMPH % 21.2 % (22.0-35.0); MEAN CELL VOLUME 98.3 fl (80.0-105.0); MEAN CORPUSCULAR HEMOGLOBIN 32.4 pg (25.0-35.0); MEAN CORPUSCULAR HGB CONC 32.9 g/dl (31.0-37.0); MEAN PLATELET VOLUME 11.1 fl (7.0-11.0); MONO # 1.6 (0.1-0.6); MONO % 17.3 % (1.0-6.0); RBC 4.11 10^6/uL (3.5-6.1); RED CELL DISTRIBUTION WIDTH 14.5 % (11.5-14.5); WHITE BLOOD COUNT 9.5 10^3/ul (4.5-11.0)
[2017-09-28 03:50] LABS: TROPONIN I 0.06 ng/mL
[2017-09-28] MEDS: Dextrose 5%/0.45% NS 1,000 ML IV SCH ×3 (06:00→23:19)
[2017-09-28] MEDS: Meropenem 1g/NS 100mL IVPB 1 GM/100 ML PIGGYBACK IVPB SCH ×3 (06:38→23:02)
[2017-09-28] MEDS: Albuterol-Ipratrop 3 mg / 0.5 (3 ml) UD IH SCH ×6 (06:42→23:50)
[2017-09-28] MEDS: Acetylcysteine 20% Inhal Soln (4ml) IH SCH ×6 (06:42→23:50)
[2017-09-28] MEDS: Vancomycin 1gm in NS 250ml 1 GM/250 ML BAG IVPB SCH ×2 (09:20→17:46)
[2017-09-28] MEDS: Metoprolol Succinate 50 mg XL Tab PO SCH (09:53)
[2017-09-28] MEDS: Aspirin 325 mg EC Tablets PO SCH (09:56)
[2017-09-28] MEDS ORDERED: cefTRIAXone 1 gm 1 GM/100 ML BAG IVPB SCH (10:00)
[2017-09-28] MEDS: Azithromycin 500MG/NS 250ml 500 MG/250 ML BAG IVPB SCH (11:00)
--- NOTE | 2017-09-28 11:58 | CP.PCM.CON ---
History of Present Illness - History of Present Illness History of Present Illness: 87 year old male with PMH of dementia, Paget's disease, osteoporosis, CAD S/P PCI S/P CABG, prostate cancer, dyslipidemia, squamous cell of the scalp S/P removal, asbestosis was [place] in [place] [facility] [place] was found to be confused on the day of admission. The day prior to that he was having rhinorrhea. There was no note of fevers at home but was noted to have fever during this admission, no vomiting, no convulsions, no loss of consciousness, no falls, no diarrhea. Full ROS is unobtainable because of the patient's mental status. In the ED, the patient was noted to be lethargic, febrile. CXR done showed patchy infiltrate in the right upper lobe. Infectious Diseases consult is requested to further evaluate and manage. Review of Systems - Review of Systems All systems: reviewed and no additional remarkable complaints except Past Patient History - Infectious Disease Hx of Infectious Diseases: None - Tetanus Immunizations Tetanus Immunization: Unknown - Past Medical History & Family History Past Medical History?: Yes - Past Social History Smoking Status: Unknown If Ever Smoked - CARDIAC Hx Cardiac Disorders: Yes (CABG, carotid endarectomy) Hx Hypercholesterolemia: Yes Hx Hypertension: Yes - PULMONARY Hx Chronic Obstructive Pulmonary Disease (COPD): No Hx Pneumonia: No - NEUROLOGICAL HX Cerebrovascular Accident: Yes Hx Dementia: Yes - HEENT Hx HEENT Problems: Yes Hx Glaucoma: Yes - RENAL Hx Chronic Kidney Disease: No - ENDOCRINE/METABOLIC Hx Endocrine Disorders: No - HEMATOLOGICAL/ONCOLOGICAL Hx Cancer: Yes (squamous cell ca/ scalp) - INTEGUMENTARY Hx Dermatological Problems: Yes Hx Squamous Cell: Yes (scalp) - MUSCULOSKELETAL/RHEUMATOLOGICAL Hx Musculoskeletal Disorders: Yes Hx Falls: Yes Hx Osteoporosis: Yes - GASTROINTESTINAL Hx Gastrointestinal Disorders: No - GENITOURINARY/GYNECOLOGICAL Hx Genitourinary Disorders: Yes Hx Prostate Problems: Yes (PROSTATE CA) Hx Urinary Tract Infection: Yes - PSYCHIATRIC Hx Psychophysiologic Disorder: Yes Hx Depression: Yes Hx Substance Use: No - SURGICAL HISTORY Hx Surgeries: Yes Hx Cardiac Catheterization: Yes Hx Coronary Stent: Yes Hx Open Heart Surgery: Yes Other/Comment: carotid endarctomy - ANESTHESIA Hx Anesthesia Reactions: No Hx Malignant Hyperthermia: No Meds Allergies/Adverse Reactions: Allergies Allergy/AdvReac Type Severity Reaction Status Date / Time No Known Allergies Allergy Verified 09/27/17 16:00 - Medications Medications: Current Medications Acetaminophen (Tylenol 650 Mg Supp) 650 mg RC Q4H PRN PRN Reason: Fever >100.4 F Last Admin: 09/28/17 03:38 Dose: 650 mg Acetylcysteine (Acetylcysteine 20%) 4 ml IH [id number] [facility] Albuterol/Ipratropium (Duoneb 3 Mg/0.5 Mg (3 Ml) Ud) 3 ml IH [id number] [facility] Aspirin (Ecotrin) 325 mg PO DAILY [facility] Atorvastatin Calcium (Lipitor) 20 mg PO DAILY [facility] Clopidogrel Bisulfate (Plavix) 75 mg PO DAILY [facility] Heparin Sodium (Porcine) (Heparin) 5,000 units SC Q8 [facility] PRN Reason: Protocol Last Admin: 09/28/17 05:04 Dose: 5,000 units Hydroxyurea (Hydrea) 500 mg PO BID [facility] Azithromycin (Zithromax 500mg In Ns) 500 mg in 250 mls @ 167 mls/hr IVPB DAILY [facility] PRN Reason: Protocol Dextrose/Sodium Chloride (Dextrose 5%/0.45% Ns 1000 Ml) 1,000 mls @ 100 mls/hr IV .Q10H [facility] Last Admin: 09/28/17 06:00 Dose: 100 mls/hr Meropenem 1 gm/ Dextrose 100 mls @ 100 mls/hr IVPB Q8 [facility] PRN Reason: Protocol Stop: 10/05/17 06:31 Vancomycin HCl (Vancomycin 1gm) 1 gm in 250 mls @ 167 mls/hr IVPB Q12H [facility] PRN Reason: Protocol Latanoprost (Xalatan Opht) 0 ml OU HS [facility] Last Admin: 09/27/17 21:48 Dose: 2.5 ml Metoprolol Succinate (Toprol Xl) 50 mg PO DAILY [facility] Oseltamivir Phosphate (Tamiflu Cap) 75 mg PO BID [facility] PRN Reason: Protocol Stop: 10/03/17 06:22 Pantoprazole Sodium (Protonix Inj) 40 mg IVP DAILY [facility] Quetiapine Fumarate (Seroquel) 12.5 mg PO HS [facility] PRN Reason: Protocol Last Admin: 09/27/17 21:48 Dose: Not Given Rivastigmine (Exelon 9.5 Mg/24 Hr Patch) 1 patch TD DAILY [facility] Physical Exam - Constitutional Appears: Chronically Ill, Other (somewhat lethargic but arousable) - Head Exam Head Exam: NORMAL INSPECTION - Neck Exam Neck exam: Negative for: Meningismus - Respiratory Exam Respiratory Exam: Decreased Breath Sounds - Cardiovascular Exam Cardiovascular Exam: +S1, +S2 - GI/Abdominal Exam GI & Abdominal Exam: Soft. absent: Tenderness Results - Vital Signs Recent Vital Signs: Last Vital Signs Temp 102.1 F H 09/28/17 05:58 Pulse 71 09/28/17 06:00 Resp 22 09/28/17 05:58 BP 131/63 09/28/17 05:58 Pulse Ox 93 L 09/28/17 05:58 - Labs Result Diagrams: 09/28/17 03:15 09/28/17 03:15 Labs: Laboratory Results - last 24 hr 09/27/17 09/28/17 09/28/17 22:31 03:15 03:15 WBC RBC Hgb Hct MCV MCH MCHC RDW Plt Count MPV Gran % Lymph % (Auto) [place] % (Auto) Eos % (Auto) Baso % (Auto) Gran # Lymph # (Auto) [place] # (Auto) Eos # (Auto) Baso # (Auto) APTT 30.6 Sodium 145 Potassium 4.1 Chloride 104 Carbon Dioxide 29 Anion Gap 17 BUN 18 Creatinine 1.0 Est GFR ( Amer) > 60 Est GFR (Non-Af Amer) > 60 Random Glucose 127 H Calcium 10.2 Total Bilirubin 1.0 AST 54 ALT 32 Alkaline Phosphatase 121 Troponin I 0.07 0.06 Total Protein 7.6 Albumin 4.0 Globulin 3.7 Albumin/Globulin Ratio 1.1 09/28/17 03:15 WBC 9.5 RBC 4.11 Hgb 13.3 L Hct 40.4 L MCV 98.3 MCH 32.4 MCHC 32.9 RDW 14.5 Plt Count 280 MPV 11.1 H Gran % 61.0 Lymph % (Auto) 21.2 L [place] % (Auto) 17.3 H Eos % (Auto) 0.3 L Baso % (Auto) 0.2 Gran # 5.76 Lymph # (Auto) 2.0 [place] # (Auto) 1.6 H Eos # (Auto) 0.0 Baso # (Auto) 0.02 APTT Sodium Potassium Chloride Carbon Dioxide Anion Gap BUN Creatinine Est GFR ( Amer) Est GFR (Non-Af Amer) Random Glucose Calcium Total Bilirubin AST ALT Alkaline Phosphatase Troponin I Total Protein Albumin Globulin Albumin/Globulin Ratio Assessment & Plan - Assessment and Plan (Free Text) Plan: Assessment Systemic Inflammatory Response Syndrome, consider sepsis due to right upper lobe HCAP with possible gram positive cocci and/or gram negative bacilli R/O Influenza dementia Paget's disease osteoporosis CAD S/P PCI S/P CABG prostate cancer dyslipidemia squamous cell of the scalp S/P removal asbestosis Plan Started the patient on Vancomycin, Merrem and Zithromax pending blood cx, PCT, urine Legionella Ag; even though rapid Influenza test is negative, we have started Tamiflu will monitor clinically
[2017-09-28] MEDS ORDERED: Acetylcysteine 20% Inhal Soln (4ml) IH ONE (22:04)
[2017-09-28] MEDS: Latanoprost 2.5 ml Opht Soln OU SCH (23:13)
[2017-09-29] MEDS: Acetylcysteine 20% Inhal Soln (4ml) IH SCH ×6 (04:03→23:30)
[2017-09-29] MEDS: Albuterol-Ipratrop 3 mg / 0.5 (3 ml) UD IH SCH ×6 (04:04→23:30)
[2017-09-29] MEDS: Vancomycin 1gm in NS 250ml 1 GM/250 ML BAG IVPB SCH ×2 (05:59→17:53)
[2017-09-29] MEDS: Meropenem 1g/NS 100mL IVPB 1 GM/100 ML PIGGYBACK IVPB SCH ×3 (05:59→21:29)
[2017-09-29 06:51] LABS: BASO # 0.01 K/mm3 (0.0-2.0); BASO % 0.1 % (0.0-3.0); EOS % 0.3 % (1.5-5.0); GRAN # 4.81 (1.4-6.5); LYMPH # 1.3 (1.2-3.4); LYMPH % 17.7 % (22.0-35.0); MEAN CELL VOLUME 95.6 fl (80.0-105.0); MEAN CORPUSCULAR HEMOGLOBIN 31.2 pg (25.0-35.0); MEAN CORPUSCULAR HGB CONC 32.6 g/dl (31.0-37.0); MEAN PLATELET VOLUME 10.6 fl (7.0-11.0); MONO % 13.9 % (1.0-6.0); RBC 3.43 10^6/uL (3.5-6.1); RED CELL DISTRIBUTION WIDTH 14.1 % (11.5-14.5); WHITE BLOOD COUNT 7.1 10^3/ul (4.5-11.0)
[2017-09-29 07:22] LABS: ALT/SGPT 28 U/L (7-56); AST/SGOT 52 U/L (17-59); BLOOD UREA NITROGEN 15 mg/dL (7-21); CALCIUM 9.6 mg/dL (8.4-10.5); GFR AFRICAN-AMERICAN > 60; GFR NON-AFRICAN AMERICAN > 60
[2017-09-29 07:45] LABS: HEMOGLOBIN 10.7 g/dL (14.0-18.0)
--- NOTE | 2017-09-29 08:20 | CON ---
DATE: 09/28/2017 PRESENTATION: The patient is an 87-year-old male seen at bedside. He us hard to arouse. In speaking with the nurses, they indicates that he had a very difficult night last night due to having a temperature of 102 and a lot of difficulty breathing, cooling blanket was applied, respiratory therapy was there. The patient was incontinent and he did not get much sleep last night, so he is pretty tired at the moment. According to the notes, the patient was admitted from the emergency room on 09/27/2017. He has history of dementia, but came from his house with altered mental status. His family had indicated that he was fine until he started with a cough yesterday, got a runny nose and then started with confusion. Evidently, this confusion is not his baseline; they have seen it in the past with urinary tract infections as well. Psychiatric consult was called for agitation. The patient was unable to be interviewed today. I called his daughter, who is listed as his next of kin as emergency contact, Haylie Davis, at [phone], and left a message, to get collateral information in terms of what patient's baseline is. VITAL SIGNS: His current vital signs include, as started earlier this morning, temperature of 102.1, pulse rate of 72, blood pressure of 131/63, respiratory rate of 22, and an O2 saturation of 93%. His labs indicates low hemoglobin and hematocrit at 13.3 and 40.4. CURRENT MEDICATIONS: Include vancomycin, Exelon. He is on Seroquel 12.5 mg, which was held at last night due to the patient being n.p.o. He is additionally on Protonix, Tamiflu, Toprol, heparin, Lipitor, Plavix and Zithromax. PLAN: Patient unable to be adequately assessed today. We will continue to follow. However, I have called the daughter for collateral information in terms of patient's previous level of functioning, which will be useful in this case. We will reassess the patient tomorrow. Thank you for the consult. Derian Dubon APN Sade Welch MD [facility] # [phone] BITA
[2017-09-29] MEDS ORDERED: DAPTOmycin 500 mg Inj (Cubicin) IV ONE (08:30)
[2017-09-29] MEDS ORDERED: Potassium Chloride 10 mEq ER Tab PO ONE (09:00)
[2017-09-29] MEDS: Potassium Chloride 10 MEQ in Dextrose 5%/0.45% NS 1,000 ML IV SCH ×3 (10:01→23:50)
[2017-09-29] MEDS: Azithromycin 500MG/NS 250ml 500 MG/250 ML BAG IVPB SCH (10:04)
[2017-09-29] MEDS: Aspirin 325 mg EC Tablets PO SCH (10:04)
[2017-09-29] MEDS: Metoprolol Succinate 50 mg XL Tab PO SCH (10:19)
--- NOTE | 2017-09-29 11:14 | CP.PCM.PN ---
Subjective - Date & Time of Evaluation Date of Evaluation: 09/29/17 Time of Evaluation: 09:50 - Subjective Subjective: Patient still having fevers, a little more awake today compared to yesterday. Objective - Vital Signs/Intake and Output Vital Signs (last 24 hours): Temp Pulse Resp BP Pulse Ox 97.5 F L 79 19 152/70 H 95 09/29/17 06:00 09/29/17 06:00 09/29/17 06:00 09/29/17 06:00 09/29/17 06:00 Intake and Output: 09/29/17 09/29/17 06:59 18:59 Intake Total 1200 Output Total 300 Balance 900 - Medications Medications: Current Medications Acetaminophen (Tylenol 650 Mg Supp) 650 mg RC Q4H PRN PRN Reason: Fever >100.4 F Last Admin: 09/28/17 23:04 Dose: 650 mg Acetylcysteine (Acetylcysteine 20%) 4 ml IH [id number] [facility] Last Admin: 09/29/17 08:17 Dose: 4 ml Albuterol/Ipratropium (Duoneb 3 Mg/0.5 Mg (3 Ml) Ud) 3 ml IH [id number] [facility] Last Admin: 09/29/17 08:17 Dose: 3 ml Aspirin (Ecotrin) 325 mg PO DAILY [facility] Last Admin: 09/28/17 09:56 Dose: Not Given Atorvastatin Calcium (Lipitor) 20 mg PO DAILY [facility] Last Admin: 09/28/17 09:53 Dose: Not Given Clopidogrel Bisulfate (Plavix) 75 mg PO DAILY [facility] Last Admin: 09/28/17 09:53 Dose: Not Given Daptomycin (Cubicin) 420 mg 6 mg/kg (420 mg) IV ONCE ONE PRN Reason: Protocol Stop: 09/29/17 08:31 Heparin Sodium (Porcine) (Heparin) 5,000 units SC Q8 [facility] PRN Reason: Protocol Last Admin: 09/29/17 05:58 Dose: 5,000 units Hydroxyurea (Hydrea) 500 mg PO BID [facility] Last Admin: 09/28/17 18:15 Dose: Not Given Azithromycin (Zithromax 500mg In Ns) 500 mg in 250 mls @ 167 mls/hr IVPB DAILY [facility] PRN Reason: Protocol Last Admin: 09/28/17 11:00 Dose: 167 mls/hr Dextrose/Sodium Chloride (Dextrose 5%/0.45% Ns 1000 Ml) 1,000 mls @ 100 mls/hr IV .Q10H [facility] Last Admin: 09/28/17 23:19 Dose: 100 mls/hr Meropenem/Sodium Chloride (Meropenem 1g/Ns 100ml Ivpb) 1 gm in 100 mls @ 100 mls/hr IVPB Q8 [facility] PRN Reason: Protocol Stop: 10/05/17 06:31 Last Admin: 09/29/17 05:59 Dose: 100 mls/hr Vancomycin HCl (Vancomycin 1gm) 1 gm in 250 mls @ 167 mls/hr IVPB Q12H [facility] PRN Reason: Protocol Last Admin: 09/29/17 05:59 Dose: 167 mls/hr Latanoprost (Xalatan Opht) 0 ml OU HS [facility] Last Admin: 09/28/17 23:13 Dose: 2.5 ml Lorazepam (Ativan) 0.5 mg IVP Q8H PRN; Protocol PRN Reason: Anxiety Metoprolol Succinate (Toprol Xl) 50 mg PO DAILY [facility] Last Admin: 09/28/17 09:53 Dose: Not Given Oseltamivir Phosphate (Tamiflu Cap) 75 mg PO BID [facility] PRN Reason: Protocol Stop: 10/03/17 06:22 Last Admin: 09/28/17 17:46 Dose: 75 mg Pantoprazole Sodium (Protonix Inj) 40 mg IVP DAILY [facility] Last Admin: 09/28/17 11:00 Dose: 40 mg Quetiapine Fumarate (Seroquel) 12.5 mg PO HS [facility] PRN Reason: Protocol Last Admin: 09/28/17 23:03 Dose: 12.5 mg Rivastigmine (Exelon 9.5 Mg/24 Hr Patch) 1 patch TD DAILY [facility] Last Admin: 09/28/17 09:20 Dose: 1 patch - Labs Labs: 09/29/17 06:30 09/29/17 06:30 PT 13.9 SECONDS (9.4-12.5) H 09/27/17 15:35 INR 1.21 (0.93-1.08) H 09/27/17 15:35 APTT 30.6 Seconds (25.1-36.5) 09/28/17 03:15 - Constitutional Appears: Chronically Ill - Head Exam Head Exam: NORMAL INSPECTION - ENT Exam ENT Exam: Mucous Membranes Moist - Neck Exam Neck Exam: absent: Meningismus - Respiratory Exam Respiratory Exam: Decreased Breath Sounds - Cardiovascular Exam Cardiovascular Exam: +S1, +S2 - GI/Abdominal Exam GI & Abdominal Exam: Soft. 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
--- NOTE | 2017-09-29 15:48 | PN ---
DATE: 09/29/2017 He is being seen today for a followup consultation. PRESENTATION: The patient was admitted to the hospital on 09/27/2017, for altered mental status yesterday with a cough and he had a fever. He does have a history of hypertension and dementia. Consultation was ordered due to agitation. The patient was seen today at bedside, flu precautions continued. The patient continues to be disoriented other than to his name. He is pleasant. Took this morning, his temperature is normal. He continues on the cooling blanket. He has not been agitated. He is cooperative, does not try to climb out of bed. He is quite hard of hearing, so I have to speak very loudly in his presence, but his altered mental status has not gone back to his apparent baseline. I spoke with his daughter, Haylie, who indicated that he lives in an apartment in her home. He is calm. He is not aggressive. She has an aide who comes in during the day, who helps him dress and bathe and then sits with him at night in case there are any problems. He does have some owning issues, but he goes to sleep, he does not wander. He gets up to go to the bathroom, he is able to be directed when he gets confused. He is able to have conversations with the family. He has some forgetfulness in terms of remembering may be where the bathroom is, but he is aware of who his family members are. He does not hallucinate. However, he does have poor eyesight and he is very hard of hearing, so these are two issues that are probably adding to his presentation. At home, he is on Exelon Patch 9.5 mg daily, Seroquel 50 mg at bedtime, and Zoloft 50 mg daily. He is not on his Zoloft at this point in time. I talked with the daughter as to whether or not it should be restarted and we agreed to leave that for now. She is aware that he is only on the Seroquel 12.5 mg at this point in time, but patient appears to be doing well with this lower dose at this time, so I will leave that as it is. According to crop or grain farmworker now, he may be going to [facility] when he is medically cleared. His daughter is in agreement with his plan. He was there once before and had good care. If he regains his baseline, she would like to have him back home. VITAL SIGNS: The patient's current vital signs include temperature of 97.5, blood pressure of 152/70, pulse of 79, and O2 sat of 95% with a respiratory rate of 19. LABORATORY DATA: The patient does have urinary tract infection of Enterococcus fecalis, serum culture was negative, blood cultures were both negative. Mental status exam was unable to be conducted. The patient was disoriented x1. However, he is not violent. He is not aggressive. There is nothing in his behavior to indicate that he is suicidal or homicidal. 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 PLAN: The patient does not appear to be suicidal or homicidal at this time. There is nothing in his behavior to indicate this and according to his daughter, he has no history of psychiatric difficulties at all, nor does he has any history of suicide attempts. He was put on the Zoloft and the Seroquel to help with his mood and the sundowning by his neurologist at some point in the recent past. He should continue on the Seroquel 12.5 mg at bedtime. He should see a psychiatrist within 48 to 72 hours after discharge at [facility] to determine what his nature at that time because delirium may be cleared then. He is psychiatrically clear to go to the prison. I will sign off on this patient at this time. Please call if there are any further needs. His case has been discussed with Dr. Welch. Alycia Dubon APN Sade Welch MD BITA
[2017-09-29] MEDS: Latanoprost 2.5 ml Opht Soln OU SCH (21:58)
[2017-09-30] MEDS: Acetylcysteine 20% Inhal Soln (4ml) IH SCH ×5 (05:03→20:30)
[2017-09-30] MEDS: Albuterol-Ipratrop 3 mg / 0.5 (3 ml) UD IH SCH ×5 (05:04→20:30)
[2017-09-30] MEDS: Potassium Chloride 10 MEQ in Dextrose 5%/0.45% NS 1,000 ML IV SCH ×2 (05:08→21:39)
[2017-09-30] MEDS: Meropenem 1g/NS 100mL IVPB 1 GM/100 ML PIGGYBACK IVPB SCH ×3 (05:29→21:37)
[2017-09-30] MEDS: Vancomycin 1gm in NS 250ml 1 GM/250 ML BAG IVPB SCH ×2 (05:55→18:36)
[2017-09-30 07:19] LABS: BASO # 0.04 K/mm3 (0.0-2.0); BASO % 0.5 % (0.0-3.0); EOS # 0.1 (0.0-0.7); EOS % 1.6 % (1.5-5.0); GRAN # 5.19 (1.4-6.5); HEMOGLOBIN 11.2 g/dL (14.0-18.0); LYMPH # 1.5 (1.2-3.4); LYMPH % 19.5 % (22.0-35.0); MEAN CELL VOLUME 95.2 fl (80.0-105.0); MEAN CORPUSCULAR HEMOGLOBIN 31.5 pg (25.0-35.0); MEAN PLATELET VOLUME 10.6 fl (7.0-11.0); MONO # 0.8 (0.1-0.6); MONO % 10.4 % (1.0-6.0); RBC 3.56 10^6/uL (3.5-6.1); RED CELL DISTRIBUTION WIDTH 13.9 % (11.5-14.5); WHITE BLOOD COUNT 7.6 10^3/ul (4.5-11.0)
[2017-09-30 07:33] LABS: ALBUMIN 3.2 g/dL (3.0-4.8); ALT/SGPT 40 U/L (7-56); AST/SGOT 54 U/L (17-59); BLOOD UREA NITROGEN 13 mg/dL (7-21); CALCIUM 9.6 mg/dL (8.4-10.5); GFR AFRICAN-AMERICAN > 60; GFR NON-AFRICAN AMERICAN > 60
--- NOTE | 2017-09-30 08:34 | CP.PCM.PN ---
<Jamey Amor - Last Filed: 09/30/17 16:07> Subjective - Date & Time of Evaluation Date of Evaluation: 09/30/17 Time of Evaluation: 05:55 - Subjective Subjective: Patient seen and examined at bedside. Patient was seen with breathing mask in hand asking what it was for. Discussed with patient what it was for and patient asked me to place it on his head. Review of systems is limited as patient has a baseline alzheimers dementia and is mentally altered. States however that he is in no pain. Discussed with patient's daughter regarding his baseline, daughter states he has improved from the day he was admitted but is still not baseline. Objective - Vital Signs/Intake and Output Vital Signs (last 24 hours): Temp Pulse Resp BP Pulse Ox 97.9 F 68 20 173/83 H 92 L 09/30/17 06:00 09/30/17 06:00 09/30/17 06:00 09/30/17 06:00 09/30/17 06:00 Intake and Output: 09/30/17 09/30/17 06:59 18:59 Intake Total 280 1650 Balance 280 1650 - Medications Medications: Current Medications Acetaminophen (Tylenol 650 Mg Supp) 650 mg RC Q4H PRN PRN Reason: Fever >100.4 F Last Admin: 09/28/17 23:04 Dose: 650 mg Acetylcysteine (Acetylcysteine 20%) 4 ml IH [id number] [facility] Last Admin: 09/30/17 07:27 Dose: 4 ml Albuterol/Ipratropium (Duoneb 3 Mg/0.5 Mg (3 Ml) Ud) 3 ml IH [id number] [facility] Last Admin: 09/30/17 07:27 Dose: 3 ml Aspirin (Ecotrin) 325 mg PO DAILY [facility] Last Admin: 09/29/17 10:04 Dose: 325 mg Atorvastatin Calcium (Lipitor) 20 mg PO DAILY [facility] Last Admin: 09/29/17 10:04 Dose: 20 mg Clopidogrel Bisulfate (Plavix) 75 mg PO DAILY [facility] Last Admin: 09/29/17 10:01 Dose: 75 mg Heparin Sodium (Porcine) (Heparin) 5,000 units SC Q8 [facility] PRN Reason: Protocol Last Admin: 09/30/17 05:29 Dose: 5,000 units Hydroxyurea (Hydrea) 500 mg PO BID [facility] Last Admin: 09/29/17 17:54 Dose: 500 mg Azithromycin (Zithromax 500mg In Ns) 500 mg in 250 mls @ 167 mls/hr IVPB DAILY [facility] PRN Reason: Protocol Last Admin: 09/29/17 10:04 Dose: 167 mls/hr Meropenem/Sodium Chloride (Meropenem 1g/Ns 100ml Ivpb) 1 gm in 100 mls @ 100 mls/hr IVPB Q8 [facility] PRN Reason: Protocol Stop: 10/05/17 06:31 Last Admin: 09/30/17 05:29 Dose: 100 mls/hr Vancomycin HCl (Vancomycin 1gm) 1 gm in 250 mls @ 167 mls/hr IVPB Q12H [facility] PRN Reason: Protocol Last Admin: 09/30/17 05:55 Dose: 167 mls/hr Potassium Chloride 10 meq/ (Dextrose/Sodium Chloride) 1,005 mls @ 100 mls/hr IV .Q10H3M [facility] Last Admin: 09/30/17 05:08 Dose: Not Given Latanoprost (Xalatan Opht) 0 ml OU HS [facility] Last Admin: 09/29/17 21:58 Dose: 2.5 ml Lorazepam (Ativan) 0.5 mg IVP Q8H PRN; Protocol PRN Reason: Anxiety Last Admin: 09/29/17 21:46 Dose: 0.5 mg Metoprolol Succinate (Toprol Xl) 50 mg PO DAILY [facility] Last Admin: 09/29/17 10:19 Dose: 50 mg Oseltamivir Phosphate (Tamiflu Cap) 75 mg PO BID [facility] PRN Reason: Protocol Stop: 10/03/17 06:22 Last Admin: 09/29/17 17:55 Dose: 75 mg Pantoprazole Sodium (Protonix Ec Tab) 40 mg PO ACB [facility] Quetiapine Fumarate (Seroquel) 12.5 mg PO HS [facility] PRN Reason: Protocol Last Admin: 09/29/17 21:34 Dose: 12.5 mg Rivastigmine (Exelon 9.5 Mg/24 Hr Patch) 1 patch TD DAILY [facility] Last Admin: 09/29/17 10:03 Dose: 1 patch - Labs Labs: 09/30/17 07:00 09/30/17 07:00 PT 13.9 SECONDS (9.4-12.5) H 09/27/17 15:35 INR 1.21 (0.93-1.08) H 09/27/17 15:35 APTT 30.6 Seconds (25.1-36.5) 09/28/17 03:15 - Constitutional Appears: Non-toxic, No Acute Distress - Head Exam Head Exam: ATRAUMATIC, NORMAL INSPECTION, NORMOCEPHALIC - Eye Exam Eye Exam: EOMI, Normal appearance - ENT Exam ENT Exam: Mucous Membranes Moist, Normal Exam - Neck Exam Neck Exam: Normal Inspection - Respiratory Exam Respiratory Exam: Clear to Ausculation Bilateral, NORMAL BREATHING PATTERN. absent: Rales, Rhonchi, Wheezes - Cardiovascular Exam Cardiovascular Exam: REGULAR RHYTHM, +S1, +S2 - GI/Abdominal Exam GI & Abdominal Exam: Soft, Normal Bowel Sounds - Neurological Exam Neurological Exam: Alert, Awake, CN II-XII Intact, Oriented x3 - Psychiatric Exam Psychiatric exam: Normal Affect, Normal Mood - Skin Skin Exam: Intact, Normal Color, Warm Assessment and Plan - Assessment and Plan (Free Text) Assessment: 80 year old male with significant history of alzheimer's dementia presenting with altered mental status found to be septic with urinary tract infection, pneumonia, and sinusitis being sources of infection. Plan: Altered mental status secondary to sepsis due to urinary tract infection, Right upper lobe pneumonia, and sinusitis -Procal negative, CRP elevated >15 -IVF -Merrem, Azithromycin, Vancomycin, Daptomycin have been discontinued, patient will now continue on Zosyn for 3-5 days more. -Troponin series negative -Sputum cultures grew normal bulmaro -Blood cultures negative after 48 hours -Urine cultures grew eterococcus faecalis -Legionella study negative, S. pneumoniae and Mycoplasma studies ordered and still pending -Continue with seizure, aspiration, fall precautions History of CAD - continue ASA, Plavix, Lipitor, and Metoprolol Alzheimer's Dementia - Continue Exelon patch - Seroquel DVT prophylaxis: SCDs, Plavix GI prophylaxis: Protonix Dispo: physical therapy recommends subacute rehab. Patient will be sent to [facility] tomorrow around 2 p.m. (location chosen by daughter). Discussed with patient's daughter Celina regarding plan for patient to go to subacute rehabilitation tomorrow, patient's daughter is in agreement with plan. <Dot Bernstein - Last Filed: 09/30/17 18:35> Objective - Vital Signs/Intake and Output Vital Signs (last 24 hours): Temp Pulse Resp BP Pulse Ox 97.8 F 64 18 150/76 92 L 09/30/17 17:36 09/30/17 17:36 09/30/17 17:36 09/30/17 17:36 09/30/17 06:00 Intake and Output: 09/30/17 09/30/17 06:59 18:59 Intake Total 280 2490 Balance 280 2490 - Medications Medications: Current Medications Acetaminophen (Tylenol 650 Mg Supp) 650 mg RC Q4H PRN PRN Reason: Fever >100.4 F Last Admin: 09/28/17 23:04 Dose: 650 mg Acetylcysteine (Acetylcysteine 20%) 4 ml IH [id number] [facility] Last Admin: 09/30/17 15:49 Dose: 4 ml Albuterol/Ipratropium (Duoneb 3 Mg/0.5 Mg (3 Ml) Ud) 3 ml IH [id number] [facility] Last Admin: 09/30/17 15:49 Dose: 3 ml Amlodipine Besylate (Norvasc) 5 mg PO DAILY [facility] Last Admin: 09/30/17 16:47 Dose: 5 mg Aspirin (Ecotrin) 325 mg PO DAILY [facility] Last Admin: 09/30/17 11:07 Dose: 325 mg Atorvastatin Calcium (Lipitor) 20 mg PO DAILY [facility] Last Admin: 09/30/17 11:07 Dose: 20 mg Clopidogrel Bisulfate (Plavix) 75 mg PO DAILY [facility] Last Admin: 09/30/17 11:07 Dose: 75 mg Heparin Sodium (Porcine) (Heparin) 5,000 units SC Q8 [facility] PRN Reason: Protocol Last Admin: 09/30/17 16:51 Dose: 5,000 units Hydroxyurea (Hydrea) 500 mg PO BID [facility] Last Admin: 09/30/17 11:11 Dose: 500 mg Azithromycin (Zithromax 500mg In Ns) 500 mg in 250 mls @ 167 mls/hr IVPB DAILY [facility] PRN Reason: Protocol Last Admin: 09/30/17 11:27 Dose: 167 mls/hr Meropenem/Sodium Chloride (Meropenem 1g/Ns 100ml Ivpb) 1 gm in 100 mls @ 100 mls/hr IVPB Q8 [facility] PRN Reason: Protocol Stop: 10/05/17 06:31 Last Admin: 09/30/17 16:49 Dose: 100 mls/hr Vancomycin HCl (Vancomycin 1gm) 1 gm in 250 mls @ 167 mls/hr IVPB Q12H [facility] PRN Reason: Protocol Last Admin: 09/30/17 05:55 Dose: 167 mls/hr Potassium Chloride 10 meq/ (Dextrose/Sodium Chloride) 1,005 mls @ 100 mls/hr IV .Q10H3M [facility] Last Admin: 09/30/17 05:08 Dose: Not Given Latanoprost (Xalatan Opht) 0 ml OU HS [facility] Last Admin: 09/29/17 21:58 Dose: 2.5 ml Lorazepam (Ativan) 0.5 mg IVP Q8H PRN; Protocol PRN Reason: Anxiety Last Admin: 09/29/17 21:46 Dose: 0.5 mg Metoprolol Succinate (Toprol Xl) 50 mg PO DAILY [facility] Last Admin: 09/30/17 11:03 Dose: 50 mg Oseltamivir Phosphate (Tamiflu Cap) 75 mg PO BID [facility] PRN Reason: Protocol Stop: 10/03/17 06:22 Last Admin: 09/30/17 11:06 Dose: 75 mg Pantoprazole Sodium (Protonix Ec Tab) 40 mg PO ACB [facility] Last Admin: 09/30/17 08:41 Dose: 40 mg Quetiapine Fumarate (Seroquel) 12.5 mg PO HS [facility] PRN Reason: Protocol Last Admin: 09/29/17 21:34 Dose: 12.5 mg Rivastigmine (Exelon 9.5 Mg/24 Hr Patch) 1 patch TD DAILY [facility] Last Admin: 09/30/17 11:07 Dose: 1 patch - Labs Labs: 09/30/17 07:00 09/30/17 07:00 PT 13.9 SECONDS (9.4-12.5) H 09/27/17 15:35 INR 1.21 (0.93-1.08) H 09/27/17 15:35 APTT 30.6 Seconds (25.1-36.5) 09/28/17 03:15 Attending/Attestation - Attestation I have personally seen and examined this patient.: Yes I have fully participated in the care of the patient.: Yes I have reviewed all pertinent clinical information, including history, physical exam and plan: Yes Notes (Text): 09/30/17 18:34 attending note; Patient seen and examined with resident. Patient is a 80 year old male with significant history of alzheimer's dementia presenting with altered mental status found to be septic with urinary tract infection, pneumonia, and sinusitis being sources of infection. Patient is afebrile and nontoxic. More alert and awake. Tolerating diet well. on IV meropenem and Zithromax. ID evaluation appreciated. Rapid flu was negative. Patient is started on Tamiflu. Urine culture is positive for enterococcus. antibiotics switched to Zosyn. Fall/aspiration/seizure precautions. venetian blind worker evaluation appreciated. Transfer to rehabilitation tomorrow. Family informed. Upon discharge the patient will follow up with PMD Dr. Lorenzo.
[2017-09-30] MEDS: Pantoprazole 40 mg EC Tab PO SCH (08:41)
--- NOTE | 2017-09-30 10:12 | CP.PCM.PN ---
Subjective - Date & Time of Evaluation Date of Evaluation: 09/30/17 Time of Evaluation: 09:05 - Subjective Subjective: Much more awake today, no fevers overnight, not short of breath at rest, no diarrhea, no vomiting. Objective - Vital Signs/Intake and Output Vital Signs (last 24 hours): Temp Pulse Resp BP Pulse Ox 97.9 F 68 20 173/83 H 92 L 09/30/17 06:00 09/30/17 06:00 09/30/17 06:00 09/30/17 06:00 09/30/17 06:00 Intake and Output: 09/30/17 09/30/17 06:59 18:59 Intake Total 280 1650 Balance 280 1650 - Medications Medications: Current Medications Acetaminophen (Tylenol 650 Mg Supp) 650 mg RC Q4H PRN PRN Reason: Fever >100.4 F Last Admin: 09/28/17 23:04 Dose: 650 mg Acetylcysteine (Acetylcysteine 20%) 4 ml IH [id number] [facility] Last Admin: 09/30/17 07:27 Dose: 4 ml Albuterol/Ipratropium (Duoneb 3 Mg/0.5 Mg (3 Ml) Ud) 3 ml IH [id number] [facility] Last Admin: 09/30/17 07:27 Dose: 3 ml Aspirin (Ecotrin) 325 mg PO DAILY [facility] Last Admin: 09/29/17 10:04 Dose: 325 mg Atorvastatin Calcium (Lipitor) 20 mg PO DAILY [facility] Last Admin: 09/29/17 10:04 Dose: 20 mg Clopidogrel Bisulfate (Plavix) 75 mg PO DAILY [facility] Last Admin: 09/29/17 10:01 Dose: 75 mg Heparin Sodium (Porcine) (Heparin) 5,000 units SC Q8 [facility] PRN Reason: Protocol Last Admin: 09/30/17 05:29 Dose: 5,000 units Hydroxyurea (Hydrea) 500 mg PO BID [facility] Last Admin: 09/29/17 17:54 Dose: 500 mg Azithromycin (Zithromax 500mg In Ns) 500 mg in 250 mls @ 167 mls/hr IVPB DAILY [facility] PRN Reason: Protocol Last Admin: 09/29/17 10:04 Dose: 167 mls/hr Meropenem/Sodium Chloride (Meropenem 1g/Ns 100ml Ivpb) 1 gm in 100 mls @ 100 mls/hr IVPB Q8 [facility] PRN Reason: Protocol Stop: 10/05/17 06:31 Last Admin: 09/30/17 05:29 Dose: 100 mls/hr Vancomycin HCl (Vancomycin 1gm) 1 gm in 250 mls @ 167 mls/hr IVPB Q12H [facility] PRN Reason: Protocol Last Admin: 09/30/17 05:55 Dose: 167 mls/hr Potassium Chloride 10 meq/ (Dextrose/Sodium Chloride) 1,005 mls @ 100 mls/hr IV .Q10H3M [facility] Last Admin: 09/30/17 05:08 Dose: Not Given Latanoprost (Xalatan Opht) 0 ml OU HS [facility] Last Admin: 09/29/17 21:58 Dose: 2.5 ml Lorazepam (Ativan) 0.5 mg IVP Q8H PRN; Protocol PRN Reason: Anxiety Last Admin: 09/29/17 21:46 Dose: 0.5 mg Metoprolol Succinate (Toprol Xl) 50 mg PO DAILY [facility] Last Admin: 09/29/17 10:19 Dose: 50 mg Oseltamivir Phosphate (Tamiflu Cap) 75 mg PO BID [facility] PRN Reason: Protocol Stop: 10/03/17 06:22 Last Admin: 09/29/17 17:55 Dose: 75 mg Pantoprazole Sodium (Protonix Ec Tab) 40 mg PO ACB [facility] Quetiapine Fumarate (Seroquel) 12.5 mg PO HS [facility] PRN Reason: Protocol Last Admin: 09/29/17 21:34 Dose: 12.5 mg Rivastigmine (Exelon 9.5 Mg/24 Hr Patch) 1 patch TD DAILY [facility] Last Admin: 09/29/17 10:03 Dose: 1 patch - Labs Labs: 09/30/17 07:00 09/30/17 07:00 PT 13.9 SECONDS (9.4-12.5) H 09/27/17 15:35 INR 1.21 (0.93-1.08) H 09/27/17 15:35 APTT 30.6 Seconds (25.1-36.5) 09/28/17 03:15 - Constitutional Appears: Non-toxic, Chronically Ill - Head Exam Head Exam: NORMAL INSPECTION - ENT Exam ENT Exam: Mucous Membranes Moist - Neck Exam Neck Exam: absent: Meningismus - Respiratory Exam Respiratory Exam: Decreased Breath Sounds - Cardiovascular Exam Cardiovascular Exam: +S1, +S2 - GI/Abdominal Exam GI & Abdominal Exam: Soft. 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
[2017-09-30] MEDS: Metoprolol Succinate 50 mg XL Tab PO SCH (11:03)
[2017-09-30] MEDS: Aspirin 325 mg EC Tablets PO SCH (11:07)
[2017-09-30] MEDS: Azithromycin 500MG/NS 250ml 500 MG/250 ML BAG IVPB SCH (11:27)
[2017-09-30] MEDS: Latanoprost 2.5 ml Opht Soln OU SCH (21:37)
[2017-10-01] MEDS: Albuterol-Ipratrop 3 mg / 0.5 (3 ml) UD IH SCH ×4 (00:55→13:37)
[2017-10-01] MEDS: Acetylcysteine 20% Inhal Soln (4ml) IH SCH ×4 (00:55→13:37)
[2017-10-01 02:05] VITALS: RESP 20
[2017-10-01] MEDS: Meropenem 1g/NS 100mL IVPB 1 GM/100 ML PIGGYBACK IVPB SCH ×2 (05:25→13:37)
[2017-10-01 06:07] VITALS: TEMP 99.1; O2SAT 94
[2017-10-01] MEDS: Vancomycin 1gm in NS 250ml 1 GM/250 ML BAG IVPB SCH (06:41)
[2017-10-01 07:20] LABS: BASO # 0.02 K/mm3 (0.0-2.0); BASO % 0.3 % (0.0-3.0); EOS # 0.1 (0.0-0.7); EOS % 1.7 % (1.5-5.0); GRAN # 3.85 (1.4-6.5); GRAN % 61.1 % (50.0-68.0); HEMOGLOBIN 11.6 g/dL (14.0-18.0); LYMPH # 1.5 (1.2-3.4); LYMPH % 23.2 % (22.0-35.0); MEAN CELL VOLUME 95.3 fl (80.0-105.0); MEAN CORPUSCULAR HEMOGLOBIN 31.9 pg (25.0-35.0); MEAN CORPUSCULAR HGB CONC 33.4 g/dl (31.0-37.0); MEAN PLATELET VOLUME 10.9 fl (7.0-11.0); MONO # 0.9 (0.1-0.6); MONO % 13.7 % (1.0-6.0); RBC 3.64 10^6/uL (3.5-6.1); RED CELL DISTRIBUTION WIDTH 13.9 % (11.5-14.5); WHITE BLOOD COUNT 6.3 10^3/ul (4.5-11.0)
[2017-10-01] MEDS: Pantoprazole 40 mg EC Tab PO SCH (08:05)
[2017-10-01 08:19] LABS: ALB/GLOB RATIO 0.9 (1.1-1.8); ALT/SGPT 40 U/L (7-56); AST/SGOT 50 U/L (17-59); BLOOD UREA NITROGEN 8 mg/dL (7-21); CALCIUM 9.7 mg/dL (8.4-10.5); GFR AFRICAN-AMERICAN > 60; GFR NON-AFRICAN AMERICAN > 60
[2017-10-01] MEDS: Azithromycin 500MG/NS 250ml 500 MG/250 ML BAG IVPB SCH (09:12)
[2017-10-01] MEDS: Potassium Chloride 10 MEQ in Dextrose 5%/0.45% NS 1,000 ML IV SCH (09:13)
[2017-10-01] MEDS: Aspirin 325 mg EC Tablets PO SCH (09:15)
[2017-10-01] MEDS: Metoprolol Succinate 50 mg XL Tab PO SCH (09:17)
[2017-10-01 09:24] VITALS: PULSE 61
--- NOTE | 2017-10-01 11:23 | CP.PCM.PN ---
Subjective - Date & Time of Evaluation Date of Evaluation: 10/01/17 Time of Evaluation: 10:05 - Subjective Subjective: More awake today, not in distress, no vomiting, no diarrhea, no fevers overnight. Objective - Vital Signs/Intake and Output Vital Signs (last 24 hours): Temp Pulse Resp BP Pulse Ox 99.1 F 72 20 142/71 94 L 10/01/17 06:00 10/01/17 06:00 10/01/17 06:00 10/01/17 06:00 10/01/17 06:00 Intake and Output: 10/01/17 10/01/17 06:59 18:59 Intake Total 1610 Balance 1610 - Medications Medications: Current Medications Acetaminophen (Tylenol 650 Mg Supp) 650 mg RC Q4H PRN PRN Reason: Fever >100.4 F Last Admin: 09/28/17 23:04 Dose: 650 mg Acetylcysteine (Acetylcysteine 20%) 4 ml IH [id number] [facility] Last Admin: 10/01/17 05:01 Dose: Not Given Albuterol/Ipratropium (Duoneb 3 Mg/0.5 Mg (3 Ml) Ud) 3 ml IH [id number] [facility] Last Admin: 10/01/17 05:04 Dose: Not Given Amlodipine Besylate (Norvasc) 5 mg PO DAILY [facility] Last Admin: 09/30/17 16:47 Dose: 5 mg Aspirin (Ecotrin) 325 mg PO DAILY [facility] Last Admin: 09/30/17 11:07 Dose: 325 mg Atorvastatin Calcium (Lipitor) 20 mg PO DAILY [facility] Last Admin: 09/30/17 11:07 Dose: 20 mg Clopidogrel Bisulfate (Plavix) 75 mg PO DAILY [facility] Last Admin: 09/30/17 11:07 Dose: 75 mg Heparin Sodium (Porcine) (Heparin) 5,000 units SC Q8 [facility] PRN Reason: Protocol Last Admin: 10/01/17 05:25 Dose: 5,000 units Hydroxyurea (Hydrea) 500 mg PO BID [facility] Last Admin: 09/30/17 19:20 Dose: 500 mg Azithromycin (Zithromax 500mg In Ns) 500 mg in 250 mls @ 167 mls/hr IVPB DAILY [facility] PRN Reason: Protocol Last Admin: 09/30/17 11:27 Dose: 167 mls/hr Meropenem/Sodium Chloride (Meropenem 1g/Ns 100ml Ivpb) 1 gm in 100 mls @ 100 mls/hr IVPB Q8 [facility] PRN Reason: Protocol Stop: 10/05/17 06:31 Last Admin: 10/01/17 05:25 Dose: 100 mls/hr Vancomycin HCl (Vancomycin 1gm) 1 gm in 250 mls @ 167 mls/hr IVPB Q12H [facility] PRN Reason: Protocol Last Admin: 10/01/17 06:41 Dose: 167 mls/hr Potassium Chloride 10 meq/ (Dextrose/Sodium Chloride) 1,005 mls @ 100 mls/hr IV .Q10H3M [facility] Last Admin: 09/30/17 21:39 Dose: 100 mls/hr Latanoprost (Xalatan Opht) 0 ml OU HS [facility] Last Admin: 09/30/17 21:37 Dose: 2.5 ml Lorazepam (Ativan) 0.5 mg IVP Q8H PRN; Protocol PRN Reason: Anxiety Last Admin: 09/29/17 21:46 Dose: 0.5 mg Metoprolol Succinate (Toprol Xl) 50 mg PO DAILY [facility] Last Admin: 09/30/17 11:03 Dose: 50 mg Oseltamivir Phosphate (Tamiflu Cap) 75 mg PO BID [facility] PRN Reason: Protocol Stop: 10/03/17 06:22 Last Admin: 09/30/17 18:35 Dose: 75 mg Pantoprazole Sodium (Protonix Ec Tab) 40 mg PO ACB [facility] Last Admin: 09/30/17 08:41 Dose: 40 mg Quetiapine Fumarate (Seroquel) 12.5 mg PO HS [facility] PRN Reason: Protocol Last Admin: 09/30/17 21:36 Dose: 12.5 mg Rivastigmine (Exelon 9.5 Mg/24 Hr Patch) 1 patch TD DAILY [facility] Last Admin: 09/30/17 11:07 Dose: 1 patch - Labs Labs: 10/01/17 07:00 09/30/17 07:00 PT 13.9 SECONDS (9.4-12.5) H 09/27/17 15:35 INR 1.21 (0.93-1.08) H 09/27/17 15:35 APTT 30.6 Seconds (25.1-36.5) 09/28/17 03:15 - Constitutional Appears: Chronically Ill - Head Exam Head Exam: NORMAL INSPECTION - Neck Exam Neck Exam: absent: Meningismus - Respiratory Exam Respiratory Exam: Decreased Breath Sounds - Cardiovascular Exam Cardiovascular Exam: +S1, +S2 - GI/Abdominal Exam GI & Abdominal Exam: Soft. absent: Tenderness Assessment and Plan - Assessment and Plan (Free Text) Plan: Assessment Systemic Inflammatory Response Syndrome, consider sepsis due to right upper lobe HCAP with possible gram positive cocci and/or gram negative bacilli R/O Influenza R/O UTI with E. 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
--- NOTE | 2017-10-01 11:34 | CP.PCM.DIS ---
<Billy White S - Last Filed: 10/01/17 13:20> Provider - Provider Date of Admission: 09/27/17 19:11 Attending physician: Dot Bernstein MD Primary care physician: Kurt Lorenzo MD Consults: Infectious Diseases: Dr. Hemphill Psychiatry: Dr. Welch Time Spent in preparation of Discharge (in minutes): 40 Diagnosis - Discharge Diagnosis (1) Altered mental status Status: Acute Priority: High (2) Sepsis Status: Acute Priority: High (3) Urinary tract infection Status: Acute Priority: High (4) Pneumonia Status: Acute Priority: High (5) Sinusitis Status: Acute Priority: High (6) Alzheimer's dementia Status: Chronic Priority: Medium (7) History of coronary artery disease Status: Chronic Priority: Low Hospital Course - Lab Results Lab Results: Micro Results 09/27/17 23:40 Sputum Induced Gram Stain - Final 09/27/17 23:40 Sputum Induced Sputum Culture - Final NORMAL ORAL THAI Most Recent Lab Values WBC 6.3 10^3/ul (4.5-11.0) 10/01/17 07:00 RBC 3.64 10^6/uL (3.5-6.1) 10/01/17 07:00 Hgb 11.6 g/dL (14.0-18.0) L 10/01/17 07:00 Hct 34.7 % (42.0-52.0) L 10/01/17 07:00 MCV 95.3 fl (80.0-105.0) 10/01/17 07:00 MCH 31.9 pg (25.0-35.0) 10/01/17 07:00 MCHC 33.4 g/dl (31.0-37.0) 10/01/17 07:00 RDW 13.9 % (11.5-14.5) 10/01/17 07:00 Plt Count 356 10^3/uL (120.0-450.0) 10/01/17 07:00 MPV 10.9 fl (7.0-11.0) 10/01/17 07:00 Gran % 61.1 % (50.0-68.0) 10/01/17 07:00 Lymph % (Auto) 23.2 % (22.0-35.0) 10/01/17 07:00 [place] % (Auto) 13.7 % (1.0-6.0) H 10/01/17 07:00 Eos % (Auto) 1.7 % (1.5-5.0) 10/01/17 07:00 Baso % (Auto) 0.3 % (0.0-3.0) 10/01/17 07:00 Gran # 3.85 (1.4-6.5) 10/01/17 07:00 Lymph # (Auto) 1.5 (1.2-3.4) 10/01/17 07:00 [place] # (Auto) 0.9 (0.1-0.6) H 10/01/17 07:00 Eos # (Auto) 0.1 (0.0-0.7) 10/01/17 07:00 Baso # (Auto) 0.02 K/mm3 (0.0-2.0) 10/01/17 07:00 PT 13.9 SECONDS (9.4-12.5) H 09/27/17 15:35 INR 1.21 (0.93-1.08) H 09/27/17 15:35 APTT 30.6 Seconds (25.1-36.5) 09/28/17 03:15 pO2 53 mm/Hg (30-55) 09/27/17 15:35 VBG pH 7.40 (7.32-7.43) 09/27/17 15:35 VBG pCO2 48.0 (40-60) 09/27/17 15:35 VBG HCO3 29.7 mmol/l (21-28) H 09/27/17 15:35 VBG Total CO2 31.2 mmol.L (22-28) H 09/27/17 15:35 VBG O2 Sat (Calc) 92.2 % (40-65) H 09/27/17 15:35 VBG Base Excess 4.0 mmol/L (0.0-2.0) H 09/27/17 15:35 VBG Potassium 4.4 mmol/L (3.6-5.2) 09/27/17 15:35 Sodium 137.0 mmol/L (132-148) 09/27/17 15:35 Chloride 101.0 mmol/L (98-107) 09/27/17 15:35 Glucose 134 mg/dl (75-110) H 09/27/17 15:35 Lactate 1.9 mmol/L (0.7-2.1) 09/27/17 15:35 FiO2 21.0 % 09/27/17 15:35 Sodium 139 mmol/L (132-148) 10/01/17 07:00 Potassium 4.1 mmol/L (3.6-5.0) 10/01/17 07:00 Chloride 107 mmol/L (98-107) 10/01/17 07:00 Carbon Dioxide 23 mmol/L (21-33) 10/01/17 07:00 Anion Gap 13 (10-20) 10/01/17 07:00 BUN 8 mg/dL (7-21) 10/01/17 07:00 Creatinine 0.8 mg/dl (0.8-1.5) 10/01/17 07:00 Est GFR ( Amer) > 60 10/01/17 07:00 Est GFR (Non-Af Amer) > 60 10/01/17 07:00 POC Glucose (mg/dL) 108 mg/dL (65-110) 09/27/17 15:33 Random Glucose 124 mg/dL (70-110) H 10/01/17 07:00 Calcium 9.7 mg/dL (8.4-10.5) 10/01/17 07:00 Phosphorus 3.5 mg/dL (2.5-4.5) 09/27/17 15:35 Magnesium 2.0 mg/dL (1.7-2.2) 09/27/17 15:35 Total Bilirubin 0.9 mg/dL (0.2-1.3) 10/01/17 07:00 AST 50 U/L (17-59) 10/01/17 07:00 ALT 40 U/L (7-56) 10/01/17 07:00 Alkaline Phosphatase 104 U/L (38-126) 10/01/17 07:00 Lactate Dehydrogenase 703 U/L (333-699) H 09/27/17 15:35 Total Creatine Kinase 453 U/L (35-230) H 09/27/17 15:35 CK-MB (CK-2) 1.6 ng/mL (0.0-3.6) 09/27/17 15:35 CK-MB (CK-2) % Cancelled 09/27/17 15:35 Troponin I 0.06 ng/mL 09/28/17 03:15 C-React Prot High Sens > 15.00 mg/L (1.00-3.00) H 09/27/17 22:31 Total Protein 6.2 g/dL (5.8-8.3) 10/01/17 07:00 Albumin 3.0 g/dL (3.0-4.8) 10/01/17 07:00 Globulin 3.2 gm/dL 10/01/17 07:00 Albumin/Globulin Ratio 0.9 (1.1-1.8) L 10/01/17 07:00 Procalcitonin 0.06 NG/ML (0.19-0.49) L 09/27/17 15:35 Venous Blood Potassium 4.4 mmol/L (3.6-5.2) 09/27/17 15:35 Urine Color Yellow (YELLOW) 09/27/17 16:10 Urine Appearance Turbid (CLEAR) 09/27/17 16:10 Urine pH 6.5 (4.7-8.0) 09/27/17 16:10 Ur Specific [place] 1.015 (1.005-1.035) 09/27/17 16:10 Urine Protein 30 mg/dL (<30 mg/dL) H 09/27/17 16:10 Urine Glucose (UA) Negative mg/dL (NEGATIVE) 09/27/17 16:10 Urine Ketones Negative mg/dL (NEGATIVE) 09/27/17 16:10 Urine Blood Large (NEGATIVE) H 09/27/17 16:10 Urine Nitrate Negative (NEGATIVE) 09/27/17 16:10 Urine Bilirubin Negative (NEGATIVE) 09/27/17 16:10 Urine Urobilinogen 1.0 E.U./dL (<1 E.U./dL) H 09/27/17 16:10 Ur Leukocyte Esterase Moderate Nisha/uL (NEGATIVE) H 09/27/17 16:10 Urine RBC 5 - 10 /hpf (0-2) 09/27/17 16:10 Urine WBC Tntc /hpf (0-6) 09/27/17 16:10 Urine Bacteria Trace (NEG) 09/27/17 16:10 Influenza Typ A,B (EIA) Negative for flu a/b (NEGATIVE) 09/27/17 16:25 Ur L.pneumophila Ag Negative (NEGATIVE) 09/28/17 12:00 Mycoplasma pneumon IgG 3.94 (<=0.90) H 09/27/17 22:31 Mycoplasma pneumon IgM 32 U/mL (<770) 09/27/17 22:31 - Hospital Course Hospital Course: Initial History of Present Illness on 09/28/17: "Patient is a 87 year old male with past medical history significant for alzheimer'sdementia, hypertension, carotid endarterectomy, pagets disease, osteoporosis, CAD s/p stent and CABG, prostate cancer s/p seed implantation, dyslipidemia, 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 As per daughter's patient was completely fine yesterday aside from having a runny nose. Next morning when bringing him breakfast, patient was noted to be very confused, and not oriented to self, time or place. To note, patient presented similarly in the past due to urinary tract infection. Review of systems unobtainable as patient is mentally altered. " Hospital Course: Patient admitted for altered mental status due to sepsis superimposed on underlying Alzheimer's dementia with sources of infection due to UTI, Pneumonia , and Sinusitis. Patient has been treated for Enterococcus faecalis in the urine as well as evidence of right upper lobe pneumonia seen on chest xray and evidence of sinusitus seen on Head CT. As an inpatient, he was initially treated with Merrem, Azithromycin, Vancomycin, and Daptomycin before settling on Zosyn as the discharge antibiotic of choice. Patient is to continue Zosyn for 3-5 more days after discharge. Although flu studies were negative, patient discharged with Tamiflu empirically. Sputum cultures, blood cultures, atypical pneumonia studies were unremarkable. Patient is stable for discharge to [facility] and will follow up with Dr. Lorenzo after discharge. This is a summary of the hospital course. For more information, refer to the medical records. Discharge Exam - Head Exam Head Exam: ATRAUMATIC, NORMOCEPHALIC - Eye Exam Eye Exam: EOMI, Normal appearance - ENT Exam ENT Exam: Mucous Membranes Moist - Respiratory Exam Respiratory Exam: Clear to PA & Lateral, NORMAL BREATHING PATTERN. absent: Rales, Rhonchi, Wheezes - Cardiovascular Exam Cardiovascular Exam: REGULAR RHYTHM, +S1, +S2 - GI/Abdominal Exam GI & Abdominal Exam: Normal Bowel Sounds, Soft. absent: Distended, Guarding, Tenderness - Extremities Exam Extremities exam: pedal pulses present - Back Exam Back exam: absent: CVA tenderness (L), CVA tenderness (R) - Neurological Exam Neurological exam: Alert, CN II-XII Intact - Psychiatric Exam Psychiatric exam: Normal Affect, Normal Mood - Skin Skin Exam: Intact, Normal Color, Warm Discharge Plan - Discharge Medications Prescriptions: Piperacillin/Tazobact 3.375 gm [Zosyn 3.375 in NS 100ml] 3.375 gm IVPB Q8 5 Days bag - Follow Up Plan Condition: STABLE Disposition: TRANSF TO SNF Instructions: Urinary Tract Infections in Adults, Heart Healthy Diet, Pneumonia , Adult (DC), Altered Mental Status (DC) Additional Instructions: 1. Transfer to rehabilitation. 2. Follow-up with PMD . 3 complete antibiotics. 4. Fall/aspiration precautions. 5. Dementia care. 6. Pt should see a psychiatrist within 48-72 hours after discharge at [facility] 7. Continue aspiration precautions, and assist with meals. Puree diet with thin liquid. . Referrals: Kurt Lorenzo MD [Primary Care Provider] - <Dot Bernstein - Last Filed: 10/02/17 07:26> Provider - Provider Date of Admission: 09/27/17 19:11 Attending physician: Dot Bernstein MD Primary care physician: Kurt Lorenzo MD Hospital Course - Lab Results Lab Results: Micro Results 09/27/17 23:40 Sputum Induced Gram Stain - Final 09/27/17 23:40 Sputum Induced Sputum Culture - Final NORMAL ORAL THAI Most Recent Lab Values WBC 6.3 10^3/ul (4.5-11.0) 10/01/17 07:00 RBC 3.64 10^6/uL (3.5-6.1) 10/01/17 07:00 Hgb 11.6 g/dL (14.0-18.0) L 10/01/17 07:00 Hct 34.7 % (42.0-52.0) L 10/01/17 07:00 MCV 95.3 fl (80.0-105.0) 10/01/17 07:00 MCH 31.9 pg (25.0-35.0) 10/01/17 07:00 MCHC 33.4 g/dl (31.0-37.0) 10/01/17 07:00 RDW 13.9 % (11.5-14.5) 10/01/17 07:00 Plt Count 356 10^3/uL (120.0-450.0) 10/01/17 07:00 MPV 10.9 fl (7.0-11.0) 10/01/17 07:00 Gran % 61.1 % (50.0-68.0) 10/01/17 07:00 Lymph % (Auto) 23.2 % (22.0-35.0) 10/01/17 07:00 [place] % (Auto) 13.7 % (1.0-6.0) H 10/01/17 07:00 Eos % (Auto) 1.7 % (1.5-5.0) 10/01/17 07:00 Baso % (Auto) 0.3 % (0.0-3.0) 10/01/17 07:00 Gran # 3.85 (1.4-6.5) 10/01/17 07:00 Lymph # (Auto) 1.5 (1.2-3.4) 10/01/17 07:00 [place] # (Auto) 0.9 (0.1-0.6) H 10/01/17 07:00 Eos # (Auto) 0.1 (0.0-0.7) 10/01/17 07:00 Baso # (Auto) 0.02 K/mm3 (0.0-2.0) 10/01/17 07:00 PT 13.9 SECONDS (9.4-12.5) H 09/27/17 15:35 INR 1.21 (0.93-1.08) H 09/27/17 15:35 APTT 30.6 Seconds (25.1-36.5) 09/28/17 03:15 pO2 53 mm/Hg (30-55) 09/27/17 15:35 VBG pH 7.40 (7.32-7.43) 09/27/17 15:35 VBG pCO2 48.0 (40-60) 09/27/17 15:35 VBG HCO3 29.7 mmol/l (21-28) H 09/27/17 15:35 VBG Total CO2 31.2 mmol.L (22-28) H 09/27/17 15:35 VBG O2 Sat (Calc) 92.2 % (40-65) H 09/27/17 15:35 VBG Base Excess 4.0 mmol/L (0.0-2.0) H 09/27/17 15:35 VBG Potassium 4.4 mmol/L (3.6-5.2) 09/27/17 15:35 Sodium 137.0 mmol/L (132-148) 09/27/17 15:35 Chloride 101.0 mmol/L (98-107) 09/27/17 15:35 Glucose 134 mg/dl (75-110) H 09/27/17 15:35 Lactate 1.9 mmol/L (0.7-2.1) 09/27/17 15:35 FiO2 21.0 % 09/27/17 15:35 Sodium 139 mmol/L (132-148) 10/01/17 07:00 Potassium 4.1 mmol/L (3.6-5.0) 10/01/17 07:00 Chloride 107 mmol/L (98-107) 10/01/17 07:00 Carbon Dioxide 23 mmol/L (21-33) 10/01/17 07:00 Anion Gap 13 (10-20) 10/01/17 07:00 BUN 8 mg/dL (7-21) 10/01/17 07:00 Creatinine 0.8 mg/dl (0.8-1.5) 10/01/17 07:00 Est GFR ( Amer) > 60 10/01/17 07:00 Est GFR (Non-Af Amer) > 60 10/01/17 07:00 POC Glucose (mg/dL) 108 mg/dL (65-110) 09/27/17 15:33 Random Glucose 124 mg/dL (70-110) H 10/01/17 07:00 Calcium 9.7 mg/dL (8.4-10.5) 10/01/17 07:00 Phosphorus 3.5 mg/dL (2.5-4.5) 09/27/17 15:35 Magnesium 2.0 mg/dL (1.7-2.2) 09/27/17 15:35 Total Bilirubin 0.9 mg/dL (0.2-1.3) 10/01/17 07:00 AST 50 U/L (17-59) 10/01/17 07:00 ALT 40 U/L (7-56) 10/01/17 07:00 Alkaline Phosphatase 104 U/L (38-126) 10/01/17 07:00 Lactate Dehydrogenase 703 U/L (333-699) H 09/27/17 15:35 Total Creatine Kinase 453 U/L (35-230) H 09/27/17 15:35 CK-MB (CK-2) 1.6 ng/mL (0.0-3.6) 09/27/17 15:35 CK-MB (CK-2) % Cancelled 09/27/17 15:35 Troponin I 0.06 ng/mL 09/28/17 03:15 C-React Prot High Sens > 15.00 mg/L (1.00-3.00) H 09/27/17 22:31 Total Protein 6.2 g/dL (5.8-8.3) 10/01/17 07:00 Albumin 3.0 g/dL (3.0-4.8) 10/01/17 07:00 Globulin 3.2 gm/dL 10/01/17 07:00 Albumin/Globulin Ratio 0.9 (1.1-1.8) L 10/01/17 07:00 Procalcitonin 0.06 NG/ML (0.19-0.49) L 09/27/17 15:35 Venous Blood Potassium 4.4 mmol/L (3.6-5.2) 09/27/17 15:35 Urine Color Yellow (YELLOW) 09/27/17 16:10 Urine Appearance Turbid (CLEAR) 09/27/17 16:10 Urine pH 6.5 (4.7-8.0) 09/27/17 16:10 Ur Specific [place] 1.015 (1.005-1.035) 09/27/17 16:10 Urine Protein 30 mg/dL (<30 mg/dL) H 09/27/17 16:10 Urine Glucose (UA) Negative mg/dL (NEGATIVE) 09/27/17 16:10 Urine Ketones Negative mg/dL (NEGATIVE) 09/27/17 16:10 Urine Blood Large (NEGATIVE) H 09/27/17 16:10 Urine Nitrate Negative (NEGATIVE) 09/27/17 16:10 Urine Bilirubin Negative (NEGATIVE) 09/27/17 16:10 Urine Urobilinogen 1.0 E.U./dL (<1 E.U./dL) H 09/27/17 16:10 Ur Leukocyte Esterase Moderate Nisha/uL (NEGATIVE) H 09/27/17 16:10 Urine RBC 5 - 10 /hpf (0-2) 09/27/17 16:10 Urine WBC Tntc /hpf (0-6) 09/27/17 16:10 Urine Bacteria Trace (NEG) 09/27/17 16:10 Influenza Typ A,B (EIA) Negative for flu a/b (NEGATIVE) 09/27/17 16:25 Influenza Type A Ab 1:128 titer (<1:8) H 09/28/17 10:50 Influenza Type B Ab 1:16 titer (<1:8) H 09/28/17 10:50 Ur L.pneumophila Ag Negative (NEGATIVE) 09/28/17 12:00 Mycoplasma pneumon IgG 3.94 (<=0.90) H 09/27/17 22:31 Mycoplasma pneumon IgM 32 U/mL (<770) 09/27/17 22:31 Ur Strep pneumoniae Ag Not detected 09/28/17 12:00 Attending/Attestation - Attestation I have personally seen and examined this patient.: Yes I have fully participated in the care of the patient.: Yes I have reviewed all pertinent clinical information, including history, physical exam and plan: Yes Notes (Text): 10/02/17 07:26 attending note; Patient seen and examined with resident. Patient is a 80 year old male with significant history of alzheimer's dementia presenting with altered mental status found to be septic with urinary tract infection, pneumonia, and sinusitis being sources of infection. Patient is afebrile and nontoxic. More alert and awake. Tolerating diet well. on IV meropenem and Zithromax. ID evaluation appreciated. Rapid flu was negative. Patient is started on Tamiflu. Urine culture is positive for enterococcus. antibiotics switched to Zosyn. Fall/aspiration/seizure precautions. 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 Transfer to rehabilitation today. Upon discharge the patient will follow up with PMD Dr. Lorenzo.
[2017-10-01 15:15] VITALS: BP 157/68
== END 2017-10-01 15:34 | DRG 871 ==
LOC: ED 15:05 → ERH 19:11 → 2RNO 21:14
PROVIDERS: ADMIT Internal Medicine; ATTEND Internal Medicine
PROC: 3E0F7GC Introduction of Other Therapeutic Substance into Respiratory Tract, Via Natural or Artificial Opening (ICD-10-PCS; principal; 2017-09-27)
DX: A41.9 Sepsis, unspecified organism (principal); J18.9 Pneumonia, unspecified organism; N39.0 Urinary tract infection, site not specified; G30.9 Alzheimer's disease, unspecified; F02.80 Dementia in other diseases classified elsewhere, unspecified severity, without behavioral disturbance, psychotic disturbance, mood disturbance, and anxiety; M88.9 Osteitis deformans of unspecified bone; I25.10 Atherosclerotic heart disease of native coronary artery without angina pectoris; M81.0 Age-related osteoporosis without current pathological fracture; I10 Essential (primary) hypertension; E78.00 Pure hypercholesterolemia, unspecified; J61 Pneumoconiosis due to asbestos and other mineral fibers; H91.90 Unspecified hearing loss, unspecified ear; Z86.73 Personal history of transient ischemic attack (TIA), and cerebral infarction without residual deficits; Z85.46 Personal history of malignant neoplasm of prostate; Z85.828 Personal history of other malignant neoplasm of skin; Z95.1 Presence of aortocoronary bypass graft; Z95.5 Presence of coronary angioplasty implant and graft; Z79.02 Long term (current) use of antithrombotics/antiplatelets; Z79.82 Long term (current) use of aspirin; Z79.899 Other long term (current) drug therapy